=== PATIENT | female | born 1985 | race Caucasian/White ===

== ENCOUNTER 2019-04-08 18:41 | Emergency (ER) | payer OTHER, MEDICAID, SELFPAY ==
[2019-04-08 18:44] VITALS: BP 96/67; PULSE 87; RESP 16; TEMP 36.8; O2SAT 98
--- NOTE | 2019-04-08 18:48 | DI.RAD.S_ITS ---
PROCEDURE: XR SHOULDER RT MIN 2V INDICATIONS: injury to joint/ tingling TECHNIQUE: 3 views of the shoulder were acquired. COMPARISON: None. FINDINGS: Bones: No fractures or dislocations. No suspicious bony lesions. Visualized ribs appear intact. Soft tissues: No suspicious soft tissue calcifications. IMPRESSION: Intact right shoulder. Dictated by: Lindsay Romano M.D. on 04/08/2019 at 19:28 Approved by: Lindsay Romano M.D. on 04/08/2019 at 19:28
[2019-04-08 20:41] VITALS: BP 88/63; PULSE 65; RESP 17; O2SAT 99
[2019-04-08] MEDS: IBUPROFEN 400 MG TABLET 800 MG PO (20:49)
--- NOTE | 2019-04-08 20:51 | ED.UPPEXIN ---
HPI - Extremity Injury (Upper) General Chief Complaint: Extremity Injury, Upper Stated Complaint: right side collar bone injury Time Seen by Provider: 04/08/19 20:51 Source: patient Mode of arrival: Ambulatory Limitations: no limitations History of Present Illness HPI narrative: This is a 33-year-old female comes to the emergency department with complaint of right clavicle shoulder pain. Patient was getting into her vehicle and lifted the trunk lid. It does not stay elevated and fell back onto her right clavicle shoulder region. Patient states she had immediate pain as well as tingling and numbness sort of shooting down her arm toward her elbow and a little bit to her pinky finger. That has resolved. She denies any weakness. She denies any numbness. She still is some tenderness over that area and some redness. She states that she does not have any pain in her neck although initially the muscles were very tight and tight into her neck as well. Patient denies any other injuries. She does have a history of multiple sclerosis. She has had allergies to diclofenac and paroxetine but takes ibuprofen intermittently without issue. Area is feeling better at this time although still uncomfortable. Related Data Allergies Allergy/AdvReac Type Severity Reaction Status Date / Time diclofenac Allergy Intermediate CHEST PAIN Unverified 10/08/17 12:58 piroxicam Allergy Mild HIVES Unverified 10/08/17 12:58 sumatriptan Allergy Unknown Unverified 10/08/17 12:58 Review of Systems Review of Systems ROS Unobtainable: All systems reviewed & are unremarkable except as noted in HPI and below [facility] Medical History (Updated 04/08/19 @ 21:07 by Ayaka Rivas DO) Multiple sclerosis (Acute) Surgical History Status post appendectomy Status post dilation and curettage Social History Smoking Status: Never smoker Social History Smoking Status: Never smoker Exam Narrative Exam Narrative: GENERAL: Alert and oriented x three, thin, well-appearing female in mild distress. HEENT: Head normocephalic, atraumatic, EOMI, pupils reactive, face symmetric, moist mucous membranes NECK: Supple, full range of motion CARDIOVASCULAR: Regular rate and rhythm without murmurs, rubs or gallops. RESPIRATORY: Breath sounds equal bilaterally, no wheezes rales or rhonchi. EXTREMITIES: Normal range of motion, no clubbing or edema. Neurovascularly intact. patient has equal family medicine physician bilaterally, 5/5 upper extremity strength. Patient has sensation throughout both upper extremities. She does have an erythematous line thumb over the distal right clavicle but proximal to the AC joint. It is moderately tender in the area. No discrete bony tenderness or deformity is noted. She does not have a hematoma or ecchymosis noted. No swelling is appreciated. Patient has full range of her neck with nontender cervical spine NEUROLOGICAL: Cranial nerves II through XII grossly intact. Moving all extremities SKIN: Warm, dry, no petechiae, no rashes or lesions. Initial Vital Signs Initial Vital Signs: Vital Signs Temperature 98.2 F 04/08/19 18:44 Pulse Rate 87 04/08/19 18:44 Respiratory Rate 16 04/08/19 18:44 Blood Pressure 96/67 04/08/19 18:44 Pulse Oximetry 98 04/08/19 18:44 Course Orders Ordered: Discontinued Medications Ibuprofen (Advil) 800 mg PO NOW ONE Stop: 04/08/19 20:46 Last Admin: 04/08/19 20:49 Dose: 800 mg Documented by: ARRINGTO Vital Signs Vital signs: Vital Signs - 8 hr 04/08/19 18:44 04/08/19 20:41 Temperature 98.2 F Pulse Rate 87 65 Respiratory Rate 16 17 Blood Pressure 96/67 Blood Pressure [Left Arm] 88/63 L Pulse Oximetry 98 99 MDM - Extremity Injury (Upper) Imaging Data right shoulder: Radiologist's impression: [address] [address] XRay Report Signed Patient: Velia Ceballos LMR#: [id number] : 1985Acct:[id number] Age/Sex: 33 / FDate of Service: 04/08/19 Loc: ED Accession Number: [id number] Procedure: XR shoulder RT min 2V Ordering Provider: Ayaka Rivas D.O. PROCEDURE: XR SHOULDER RT MIN 2V INDICATIONS: injury to joint/ tingling TECHNIQUE: 3 views of the shoulder were acquired. COMPARISON: None. FINDINGS: Bones: No fractures or dislocations. No suspicious bony lesions. Visualized ribs appear intact. Soft tissues: No suspicious soft tissue calcifications. IMPRESSION: Intact right shoulder. Dictated by: Lindsay Romano M.D. on 04/08/2019 at 19:28 Approved by: Lindsay Romano M.D. on 04/08/2019 at 19:28 [facility] Narrative Medical decision making narrative: Patient states feeling little bit better with ice. Was given ibuprofen here in the department. She states she tolerates ibuprofen fine we discussed ibuprofen as needed as well as Tylenol. Treatment in signs and symptoms to watch for and reasons to return emergently. Patient is comfortable with the plan. She is accompanied by her boyfriend. Discharge Plan Departure Patient Disposition: Home Clinical Impression: Contusion of right clavicle Discharge Date/Time: 04/08/19 21:20 Activity Restrictions/Additional Instructions: Follow-up with primary care next 5-7 days if your symptoms have not completely resolved You may continue ibuprofen up to 800 mg every 8 hours and/or Tylenol up to a 1000 mg every 8 hours as needed for pain. You may use a sling as needed, make sure they UR moving her shoulder through full range of motion several times daily while wearing a sling to avoid frozen shoulder. Increase activity as tolerated. Elevated affected body part to decrease swelling. OK to use ice pack on the affected body part. Use for 15-20 minutes each time, for 5-6x per day. If you develop worsening pain, numbness, tingling, discoloration of the affected body part and either see your doctor for an urgent re-assessment, or return to the Emergency Department. Return to the Emergency Department for any new or worsening symptoms. Stand Alone Forms: Work Release Note
== END 2019-04-08 21:20 | disposition home or self-care (01) ==
PROVIDERS: Emergency Provider Emergency Medicine; Family Provider Obstetrics & Gynecology
DX: S40.011A Contusion of right shoulder, initial encounter (principal)
CPT/HCPCS: 73030; 99282; 99283

== ENCOUNTER 2021-03-05 19:22 | Emergency (ER) | payer OTHER, MEDICAID, SELFPAY ==
[2021-03-05 19:26] VITALS: BP 102/72; PULSE 82; RESP 16; TEMP 36.8; O2SAT 98
--- NOTE | 2021-03-05 19:35 | DI.CT.S_ITS ---
PROCEDURE: CT CERVICAL SPINE WO CON INDICATIONS: twisting injury TECHNIQUE: Noncontrast 3 mm thick sections acquired from the skull base to the T4 level. Sagittal and coronal reformats were then constructed. For radiation dose reduction, the following was used: automated exposure control, adjustment of mA and/or kV according to patient size. COMPARISON: None. FINDINGS: Image quality: Excellent. Bones: No acute fractures or dislocations. No acute compression fractures of the vertebral bodies. Craniocervical junction is intact. C1-C2 relationship is preserved. Visualized superior ribs are intact. Straightening of normal cervical lordosis which may be due to patient positioning and/or concurrent muscle spasms. Soft tissues: Prevertebral soft tissues are normal in thickness. No paravertebral hematomas. No apical pneumothoraces. IMPRESSION: CT cervical spine without acute fracture or dislocation. Mild straightening of normal cervical lordosis likely related to positioning and/or concurrent muscle spasms. Dictated by: Henry Lombardi M.D. on 03/05/2021 at 19:46 Approved by: Henry Lombardi M.D. on 03/05/2021 at 19:48
--- NOTE | 2021-03-05 21:43 | PC.NURSE ---
Patient was on a slide/trampoline that ended up with her landing on her head and flipping over causing a kind of whiplash incident. She endorsed a popping sensation and considerable pain afterwards.
--- NOTE | 2021-03-05 23:04 | ED.BACK ---
HPI - Back Pain/Injury General Chief Complaint: Back Pain/Injury Stated Complaint: neck injury at [facility] emergency room Time Seen by Provider: 03/05/21 23:00 Source: patient Mode of arrival: Ambulatory Limitations: no limitations History of Present Illness HPI Narrative: This is a 35-year-old female comes emergency department after having a side bending injury to her cervical spine. Patient was riding on a 2 with her child across is a rubbery floor down a slide when they fell often patient landed on her with her body sort of flipping up in the air and then coming back down. Patient states she had significant pain and discomfort in cervical spine that has been slowly moving down towards through her back as the day progresses. This happened about noon today. Patient denies any new numbness, tingling or weakness. She denies any loss of consciousness. No headache. No nausea or vomiting. No loss of bowel or bladder control. Patient is not anticoagulated. She does have a history of MS. She is on gabapentin daily but denies other daily medications. No tobacco, alcohol or illicit. She does note that she has some bulging discs in the past and this area seems a bit more uncomfortable at this time. Patient did take some ibuprofen at home earlier today which was somewhat helpful. Related Data Previous Rx's Medication Instructions Recorded diazepam 10 mg tablet (Valium) 10 mg PO TID PRN #14 tab 03/05/21 Allergies Allergy/AdvReac Type Severity Reaction Status Date / Time diclofenac Allergy Intermediate CHEST PAIN Unverified 10/08/17 12:58 piroxicam Allergy Mild HIVES Unverified 10/08/17 12:58 sumatriptan Allergy Unknown Unverified 10/08/17 12:58 Review of Systems Review of Systems ROS Unobtainable: All systems reviewed & are unremarkable except as noted in HPI and below Patient History Medical History Multiple sclerosis Surgical History Status post appendectomy Status post dilation and curettage Social History Smoking Status: Never smoker Smoking Status: Never smoker alcohol intake frequency: 0-2 drinks per day Substance Use Type: does not use Exam Narrative Exam Narrative: GEN: C-collar in department. Patient appears in mild distress. HEAD: No evidence of trauma, no raccoon/Mast sign. NECK: Nontender, painless range of motion, trachea midline Positive Nexus criteria, there is mild mid line tenderness, no distracting injury, altered mental status, neuro deficit, recent EtOH. EYES: PERRLA, EOMI ENT: External inspection normal, trachea is midline, no dental or oral injury, airway is normal and with normal occlusion, No bony tenderness RESP: Chest is nontender and has symmetric movement, no ecchymosis, breath sounds are normal no crackles, wheezes or rales CVS: Heart sounds are normal, no murmur noted, No JVD. ABG/GI: Nontender, soft, normal bowel sounds, no distention, no organomegaly NEURO: Oriented AOx3, neuro is grossly intact, sensation and motor is normal all 4 extremities moving, cranial nerves II through XII are intact, GCS is 15 PSYCH: Normal mood and affect SKIN: Intact, warm and dry, no crepitus and without decubitus BACK: No CVA tenderness, patient has mild vertebral tenderness over C6 vertebral tenderness, no step-off's, no crepitus. Patient does have quite a bit of muscle tightness particularly of the left paraspinal muscles. Patient does have full range of motion of her cervical spine. With no significant restriction in rotation. EXT: Atraumatic, hips are nontender, no pedal edema, normal color and temperature, normal range of motion of extremities with normal tendon exam, 2+ pulses in all four extremities Initial Vital Signs Initial Vital Signs: Vital Signs Temperature 98.3 F 03/05/21 19:26 Pulse Rate 82 03/05/21 19:26 Respiratory Rate 16 03/05/21 19:26 Blood Pressure 102/72 03/05/21 19:26 Pulse Oximetry 98 03/05/21 19:26 Scores Nexus Score for C-Spine Focal Neurologic deficit present: No Midline spinal tenderness present: Yes Altered level of conciousness present: No Intoxication present: No Distracting Injury Present: No Nexus Criteria for C-spine: 1 Course Orders Ordered: Discontinued Medications Hydrocodone Bitart/Acetaminophen (Hydrocodone/Acet 5/325 Prepack) 1 bottle MISC SEEINSTR ONE Stop: 03/05/21 23:16 Last Admin: 03/05/21 23:23 Dose: 1 bottle Documented by: SOBIA Diazepam (Diazepam 5 Mg Tablet) 10 mg PO NOW ONE Stop: 03/05/21 23:16 Last Admin: 03/05/21 23:22 Dose: 10 mg Documented by: SOBIA Diazepam (Diazepam 5 Mg Tablet) 5 mg PO NOW ONE Stop: 03/05/21 23:19 Last Admin: 03/05/21 23:23 Dose: Not Given Documented by: SOBIA Vital Signs Vital signs: Vital Signs - 8 hr 03/05/21 19:26 Temperature 98.3 F Pulse Rate 82 Respiratory Rate 16 Blood Pressure 102/72 Pulse Oximetry 98 MDM - Back Pain/Injury Imaging Data CT - cervical spine: Radiologist's Impression: [address] [address] [address] Scan Report Signed Patient: Velia Hannah MR#: [id number] : 1985 Acct:[id number] Age/Sex: 35 / F Date of Service: 03/05/21 Loc: ED Accession Number: [id number] ?? Procedure: CT cervical spine wo con Ordering Provider: Ayaka Rivas D.O. PROCEDURE:? CT CERVICAL SPINE WO CON ? INDICATIONS:? twisting injury ? TECHNIQUE:? Noncontrast 3 mm thick sections acquired from the skull base to the T4 level.? Sagittal and coronal reformats were then constructed.? For radiation dose reduction, the following was used:? automated exposure control, adjustment of mA and/or kV according to patient size.? ? COMPARISON:? None. ? FINDINGS:? Image quality:? Excellent.? ? Bones:? No acute fractures or dislocations.? No acute compression fractures of the vertebral bodies. Craniocervical junction is intact. C1-C2 relationship is preserved. Visualized superior ribs are intact.? Straightening of normal cervical lordosis which may be due to patient positioning and/or concurrent muscle spasms. ? Soft tissues:? Prevertebral soft tissues are normal in thickness.? No paravertebral hematomas.? No apical pneumothoraces.? ? ? IMPRESSION:? CT cervical spine without acute fracture or dislocation. Mild straightening of normal cervical lordosis likely related to positioning and/or concurrent muscle spasms. ? Dictated by: Henry Lombardi M.D. on 03/05/2021 at 19:46 ? ? Approved by: Henry Lombardi M.D. on 03/05/2021 at 19:48?? [facility] Narrative Medical decision making narrative: This is a 35-year-old with a side bending injury to her cervical spine. Patient has some midline discomfort on exam not severe. C-spine CT was obtained and is negative. Patient's physical exam is otherwise reassuring and my suspicion for ligamentous injury is low. Return precautions were discussed. Patient was given muscle relaxer and plans to use ibuprofen/Tylenol as needed for pain with a prepack of narcotic pain medication for very short-term control. Discharge Plan Departure Patient Disposition: Home Clinical Impression: Acute cervical sprain Instructions: DI for Whiplash Activity Restrictions/Additional Instructions: Follow up with your physician in the next week for recheck if you are not improving. Continue with ibuprofen up to 800 mg every 8 hours and/or Tylenol 1000 mg every 8 hours as needed for pain. You may take Valium 1 tablet every 8 hours as needed for muscle spasm. If necessary may take Empire 1 tablet every 6 hours as needed pain. This medication does have Tylenol in it. Do not take more than 3000 mg of Tylenol in 24 hours. This medication can make you sleepy do not drive, perform hazardous activities or make any major decisions while taking it. This medication will make you constipated please take a stool softener once to twice daily until stools are soft and regular. Pres[facility]. Please return for severe headaches, rapidly worsening neck pain, new numbness, tingling or weakness, loss of bowel or bladder control, difficulty moving or using her extremities, dropping objects, new chest pain, shortness of breath, persistent vomiting or other new or concerning symptoms. Prescriptions: New diazepam [Valium] 10 mg tablet 10 mg PO TID PRN (Reason: muscle spasm) Qty: 14 RF: 0
[2021-03-05] MEDS: diazePAM 5 MG TABLET 10 MG PO (23:22)
[2021-03-05] MEDS: HYDROCODONE/ACET 5/325 PREPACK 1 BOTTLE MISC (23:23)
== END 2021-03-05 23:45 | disposition home or self-care (01) ==
PROVIDERS: Emergency Provider Emergency Medicine; Family Provider Obstetrics & Gynecology
DX: S13.9XXA Sprain of joints and ligaments of unspecified parts of neck, initial encounter (principal); W19.XXXA Unspecified fall, initial encounter
CPT/HCPCS: 72125; 99284

== ENCOUNTER → 2021-09-25 13:06 | Outpatient (CLI) | payer OTHER, MEDICAID, SELFPAY | PROVIDERS: Family Provider Obstetrics & Gynecology; Visit Provider Nurse Practitioner Family | DX: J02.9 Acute pharyngitis, unspecified (principal) | CPT/HCPCS: 87880 ==

== ENCOUNTER 2022-04-27 18:06 | Observation (INO) | payer OTHER, MEDICAID, SELFPAY ==
[2022-04-27] VITALS (17 sets, daily range): BP systolic 80–129; BP diastolic 52–89; PULSE 69–92; RESP 12–29; TEMP 36.3–36.5; O2SAT 97–99; BMI 21.1
--- NOTE | 2022-04-27 18:30 | DI.RAD.S_ITS ---
PROCEDURE: XR CHEST 1V INDICATIONS: chest pain TECHNIQUE: One view of the chest was acquired. COMPARISON: [facility], , CHEST 2 VIEW, 11/18/2014, 17:31. FINDINGS: Surgical changes and devices: None. Lungs and pleura: Lungs are clear. No pleural effusions or pneumothorax. Mediastinum: Mediastinal contours appear normal. Heart size is normal. Bones and chest wall: No suspicious bony lesions. Overlying soft tissues appear unremarkable. IMPRESSION: No acute cardiopulmonary abnormality. Dictated by: Arturo Murray M.D. on 04/27/2022 at 19:12 Approved by: Arturo Murray M.D. on 04/27/2022 at 19:13
[2022-04-27 19:10] LABS: Alanine Aminotransferase 20 IU/L (<35); Albumin 4.5 g/dL (3.5-5.0); Albumin Globulin Ratio 1.3 (1.0-2.8); Alkaline Phosphatase 68 U/L (38-126); Aspartate Aminotransferase 23 IU/L (14-36); BUN Creatinine Ratio 20.4 (6-22); Bilirubin Total 0.7 mg/dL (0.2-1.3); Blood Urea Nitrogen 10 mg/dL (7-17); Calcium 9.1 mg/dL (8.4-10.2); Carbon Dioxide 27 mmol/L (22-32); Chloride 102 mmol/L (98-107); Creatine Kinase 36 U/L (30-135); Estimated Glomerular Filt Rate > 60 mL/min (>60); Globulin 3.4 g/dL (1.7-4.1); Glucose 87 mg/dL (70-100); HEMOLYSIS < 15 (0-50); Lipase 106 U/L (23-300); Potassium 3.3 mmol/L (3.4-5.1); Sodium 139 mmol/L (137-145); Total Protein 7.9 g/dL (6.3-8.2)
[2022-04-27 19:21] LABS: Troponin I < 0.012 ng/mL (0.01-0.034)
[2022-04-27 19:41] LABS: Add Manual Diff / Slide Review NO; Basophils Absolute Auto 0 /uL (0-100); Basophils Percent Auto 0.5 % (0-2); Eosinophils Absolute Auto 300 /uL (0-450); Eosinophils Percent Auto 3.5 % (2-4); Hematocrit 37.9 % (36-46); Lymphocytes Absolute Auto 2200 /uL (1100-4500); Lymphocytes Percent Auto 29.1 % (25-40); Mean Corpuscular HGB Conc 34.4 % (30-36); Mean Corpuscular Hemoglobin 29.9 PG (26-34); Mean Corpuscular Volume 86.9 fL (80-100); Monocytes Absolute Auto 500 /uL (0-900); Monocytes Percent Auto 6.6 % (3-14); Neutrophils Absolute Auto 4600 /uL (1500-7000); Neutrophils Percent Auto 60.3 % (50-75); Platelet Count 217 X10^3/uL (150-400); Red Blood Cell Count 4.37 X10^6/uL (4.0-5.2); Red Cell Distribution Width 13.5 % (11.6-14.8); White Blood Cell Count 7.7 X10^3/uL (4.5-11.0)
--- NOTE | 2022-04-27 20:11 | DI.CT.S_ITS ---
PROCEDURE: CT ANGIO HEAD AND NECK INDICATIONS: left arm weakness, tingling, ms hx, falling asleep a lot TECHNIQUE: Pre-contrast 4.5 mm thick sections acquired from the foramen magnum to the vertex. After the administration of intravenous contrast, 1 mm thick sections acquired from the aortic arch through the [place]. Post-contrast 4.5 mm thick sections then re-acquired from the foramen magnum to the vertex. 3-dimensional [id number] (MIP) and/or volume rendering reformats were acquired of the central intracranial vasculature and neck separately. For radiation dose reduction, the following was used: automated exposure control, adjustment of mA and/or kV according to patient size. COMPARISON: None. FINDINGS: Image quality: Excellent. BRAIN: CSF spaces: Ventricles are normal in size and shape. Basal cisterns are patent. No extra-axial fluid collections. Brain: No midline shift. No intracranial bleeds or masses. [place]-white matter interface appears intact. Skull and face: Calvarium and facial bones appear intact, without suspicious lesions. Orbits appear normal. Sinuses: Sinuses and mastoids are clear. HEAD CT ANGIOGRAPHY: Anterior circulation: Intracranial internal carotid arteries are normal in size and flow. The flow within the paired anterior cerebral arteries is normal and symmetric. The flow within the middle cerebral arteries is normal and symmetric. The anterior communicating artery is seen. No aneurysms are seen. Posterior circulation: Visualized portions of the vertebral arteries demonstrate normal caliber, and join to form a normal appearing basilar artery. Flow within the posterior cerebral arteries is normal and symmetric. No aneurysms are seen. NECK CT ANGIOGRAPHY: Carotid system: The great vessels demonstrate a conventional anatomy as they arise from the aortic arch. The origins of the common carotid arteries appear patent. The common carotid arteries demonstrate normal caliber and courses. The bifurcation regions are both widely patent. The internal carotid arteries demonstrate normal calibers and courses. Posterior circulation: The origins of the vertebral arteries both appear widely patent. The more superior extracranial portions of both vertebral arteries also demonstrate normal courses and calibers. They join to form a normal appearing basilar artery. Soft tissues: Visualized neck soft tissues demonstrate no suspicious abnormalities. Bones: No suspicious bony lesions. Visualized cervical spine appears normally aligned. IMPRESSION: Normal examination. Source of current symptoms is not found. Any quantitative measurements of stenosis were performed using NASCET criteria. Dictated by: Merritt Maharaj M.D. on 04/27/2022 at 21:37 Approved by: Merritt Maharaj M.D. on 04/27/2022 at 21:39
--- NOTE | 2022-04-27 20:34 | ED_ITS ---
HPI - Arrhythmia/Palpitations General Chief Complaint: Arrhythmia/Palpitations Stated Complaint: Having a Diabetic Episode Time Seen by Provider: 04/27/22 20:11 Source: patient Mode of arrival: Ambulatory Limitations: no limitations History of Present Illness HPI narrative: This is a 36-year-old female who presents with complaint of trouble staying awake, she states that she is had clumps of hair falling out and has felt shaky with some blurred vision as well as occasionally fluttering in her chest and numbness that radiates down her left arm. Patient states she has not appreciated dropping anything. She occasionally feels short of breath. She states symptoms specifically the vision change and numbness tingling in her arm started today, she thought she was having blood blood sugar but none in the normal thing she would do would make this better. She is been having some issues with her hair falling out and feeling generally shaky and falling asleep more frequently over the past month but acutely over the last 2 or 3 days it has worsened. Patient denies any fevers or chills, no cold cough or congestion. No chest pain or pressure. Occasional shortness of breath when she feels anxious as 1 of her children is in addiction treatment and 1 [address]. No nausea or vomiting, no diarrhea constipation, no urinary symptoms. No swelling. Patient occasionally has pain in her back that radiates down her arm. She has not appreciated dropping things. She does have a history of MS she states she had a flare in 2013 was mostly visual changes and optic nerve issues. She was diagnosed by Dr. Contreras but has not been following regularly. She is had a prior appendectomy. She states no daily medications. She0 has received IV steroids in the past. She is allergic to sumatriptan and diclofenac. No tobacco, rare alcohol 1 or 2 times yearly, no illicit. She is no longer establish with primary but was seeing the [facility]. She also requests to be evaluated with drug screen as her work place thought she was high. Related Data Home Medications Medication Instructions Recorded Confirmed gabapentin 300 mg capsule 300 mg PO BID 09/25/21 04/28/22 Previous Rx's Medication Instructions Recorded diazepam 10 mg tablet (Valium) 10 mg PO TID PRN muscle spasm #14 03/05/21 tabs Allergies Allergy/AdvReac Type Severity Reaction Status Date / Time diclofenac Allergy Intermediate CHEST PAIN Unverified 03/24/22 10:01 piroxicam Allergy Mild HIVES Unverified 03/24/22 10:01 sumatriptan Allergy Unknown Unverified 03/24/22 10:01 Review of Systems Review of Systems ROS Unobtainable: All systems reviewed & are unremarkable except as noted in HPI and below Patient History Medical History Multiple sclerosis Surgical History Status post appendectomy Status post dilation and curettage Family History (Updated 04/28/22 @ 02:05 by KACI Johnson) Mother Epilepsy Diabetes mellitus Congestive heart failure Father Cancer Social History household members: spouse and children Smoking Status: Never smoker Smoking Status: Never smoker alcohol intake frequency: holidays/special occasions only Substance Use Type: does not use Exam Narrative Exam Narrative: GEN: well nourished, well appearing female, alert and oriented x [default value], patient appears to be in mild distress. HEENT: Atraumatic, pupils are equal round reactive to light, extraocular movements are intact, nares are clear, TMs are clear with no fluid, there is no conjunctival pallor. Throat is clear without any exudates, erythema, tonsillar enlargement or uvular deviation, no facial droop HEART: Regular rate and rhythm without murmur, clicks, rubs. Pulses are equal in upper and lower extremities LUNGS:Lungs clear to auscultation, no wheezes, rales, crackles, chest moves symmetrically ABD:bowel sounds normal, soft, non-tender, no guarding, rebound, rigidity, no masses noted, no hepatosplenomegaly :No CVA tenderness MSCL: Non-tender, no muscle atrophy, muscles strength 5/5 upper and lower extremities but patient has drift on the left upper extremity on NIH. Full range of motion NEURO:CN 2-12 intact, sensation normal, reflexes 2/4 upper and lower extremities. finger nose finger test normal, heel pathak test normal, patient has mild tremors bilateral lower extremities. SKIN: No rash, erythema or other skin changes Initial Vital Signs Initial Vital Signs: Vital Signs Temperature 97.7 F 10/29/22 18:12 Pulse Rate 92 H 04/27/22 18:12 Respiratory Rate 20 04/27/22 18:12 Blood Pressure 129/89 04/27/22 18:12 Pulse Oximetry 99 04/27/22 18:12 Oxygen Delivery Method 04/27/22 18:12 Scores NIH Stroke Scale Level of Conciousness: Alert, keenly responsive Ask month/age: Answers both questions correctly. Open/close eyes, close hand: Performs both tasks correctly Best gaze horizontal: Normal Visual morocho: No visual loss Facial palsy: Normal symetrical movement Left arm drift: Drifts down, not to bed Right arm drift: No drift for full 10 sec Left leg drift: Drifts down, not to bed Right leg drift: No drift for full 5 sec Limb ataxia: Absent Sensory on face/arms/legs: Mild to moderate sensory loss, can tell touch Best language: No aphasia, normal Dysarthria: Normal Extinction or inattention: No abnormality Total NIH Stroke scale score: 3 Course Orders Ordered: ED Orders 04/27/22 23:00 Consult to Discharge Planning Routine Consult to Occupational Therapy Evaluate & Treat Consult to Physical Therapy Evaluate & Treat Consult to Speech Therapy Evaluate & Treat MR stroke Stat Education, smoking cessation ONGOING 04/28/22 01:10 Troponin I Q6H 04/28/22 05:00 Basic Metabolic Panel Routine 04/28/22 07:00 Troponin I Q6H Aspirin (Aspirin Ec 81 Mg Tablet) 81 mg PO DAILY [facility] Atorvastatin Calcium (Atorvastatin 20 Mg Tablet) 20 mg PO BEDTIME [facility] Last Admin: 04/28/22 01:26 Dose: 20 mg Documented By: DGF Clopidogrel Bisulfate (Clopidogrel 75 Mg Tablet) 75 mg PO DAILY [facility] Enoxaparin Sodium (Enoxaparin 40 Mg/0.4 Ml Syringe) 40 mg SUBCUT DAILY [facility] Naloxone HCl (Naloxone 0.4 Mg/Ml Vial) 0.2 mg IV Q2MIN PRN PRN Reason: Opiate Reversal Discontinued Medications Sodium Chloride (Normal Saline 0.9%) 1,000 mls @ 1,000 mls/hr IV BOLUS ONE Stop: 04/27/22 21:36 Last Infusion: 04/27/22 23:03 Dose: 0 mls/hr Documented By: Admin: 04/27/22 20:41 Dose: 1,000 mls/hr Documented By: SB Potassium Chloride (Potassium Chloride 10 Meq Tab) 10 meq PO NOW ONE Stop: 04/28/22 02:03 Consultations Consultation #1: Dr. Huff, recommends MR brain and C-spine at the same time not just sprain and fatigue labs could possibly be pseudo exacerbation but would do appropriate workup stroke as well. Time: 22:42 Consultation #2: [employer] REPAIR TECHNICIAN Joseph, Vital Signs Vital signs: Vital Signs - 8 hr 04/27/22 22:00 04/27/22 22:09 04/27/22 22:09 Pulse Rate 79 91 H Respiratory Rate 13 20 Blood Pressure 80/52 L Pulse Oximetry 97 97 04/27/22 22:10 04/27/22 22:10 04/27/22 22:30 Pulse Rate 92 H Respiratory Rate 14 Blood Pressure 86/54 L 93/55 L Pulse Oximetry 97 04/27/22 22:30 04/27/22 23:00 04/27/22 23:00 Pulse Rate 80 83 Respiratory Rate 12 Blood Pressure 94/57 L Pulse Oximetry 98 99 MDM - Arrhythmia/Palpitations Lab Data Result diagrams: 04/27/22 18:45 04/27/22 18:45 Labs: Lab Results 04/27/22 04/27/22 04/27/22 Range/Units 18:45 18:45 18:45 WBC 7.7 (4.5-11.0) X10^3/uL RBC 4.37 (4.0-5.2) X10^6/uL Hgb 13.0 (12.0-16.0) g/dL Hct 37.9 (36-46) % MCV 86.9 (80-100) fL MCH 29.9 (26-34) PG MCHC 34.4 (30-36) % RDW 13.5 (11.6-14.8) % Plt Count 217 (150-400) X10^3/uL Neut % (Auto) 60.3 (50-75) % Lymph % (Auto) 29.1 (25-40) % [place] % (Auto) 6.6 (3-14) % Eos % (Auto) 3.5 (2-4) % Baso % (Auto) 0.5 (0-2) % Neut # (Auto) 4600 (5475-1013) /uL Lymph # (Auto) 2200 (4472-6198) /uL [place] # (Auto) 500 (0-900) /uL Eos # (Auto) 300 (0-450) /uL Baso # (Auto) 0 (0-100) /uL PT (10.1-12.7) SECONDS INR (0.9-1.3) Sodium 139 (137-145) mmol/L Potassium 3.3 L (3.4-5.1) mmol/L Chloride 102 (98-107) mmol/L Carbon Dioxide 27 (22-32) mmol/L BUN 10 (7-17) mg/dL Creatinine 0.49 L (0.52-1.04) mg/dL Estimated GFR > 60 (>60) mL/min BUN/Creatinine Ratio 20.4 (6-22) Glucose 87 (70-100) mg/dL Hemoglobin A1c (4.0-6.0) % Calcium 9.1 (8.4-10.2) mg/dL Magnesium 2.0 (1.6-2.3) mg/dL Total Bilirubin 0.7 (0.2-1.3) mg/dL AST 23 (14-36) IU/L ALT 20 (<35) IU/L Alkaline Phosphatase 68 (38-126) U/L Total Creatine Kinase 36 (30-135) U/L CK-MB (CK-2) TNP CK-MB (CK-2) Rel Index TNP Troponin I < 0.012 (0.01-0.034) ng/mL Total Protein 7.9 (6.3-8.2) g/dL Albumin 4.5 (3.5-5.0) g/dL Globulin 3.4 (1.7-4.1) g/dL Albumin/Globulin Ratio 1.3 (1.0-2.8) Triglycerides (35-150) mg/dL Cholesterol (140-199) mg/dL LDL Cholesterol, Calc (<100) mg/dL HDL Cholesterol (40-60) mg/dL Lipase 106 (23-300) U/L TSH (0.47-4.68) uIU/mL Cortisol PM Sample (1.7-14.1) ug/dL U Opiates 300ng/mL cut Negative (Negative) Ur Oxycodone Screen Negative (Negative) Urine Methadone Screen Negative (Negative) Ur Barbiturates Screen Negative (Negative) U Tricyclic Antidepress Negative (Negative) Ur Phencyclidine Scrn Negative (Negative) Ur Amphetamines Screen Negative (Negative) U Methamphetamines Scrn Negative (Negative) Ur MDMA Scrn (Ecstasy) Negative (Negative) U Benzodiazepines Scrn Negative (Negative) Urine Cocaine Screen Negative (Negative) U Marijuana (THC) Screen Negative (Negative) 04/27/22 04/27/22 04/27/22 Range/Units 18:45 18:45 18:45 WBC (4.5-11.0) X10^3/uL RBC (4.0-5.2) X10^6/uL Hgb (12.0-16.0) g/dL Hct (36-46) % MCV (80-100) fL MCH (26-34) PG MCHC (30-36) % RDW (11.6-14.8) % Plt Count (150-400) X10^3/uL Neut % (Auto) (50-75) % Lymph % (Auto) (25-40) % [place] % (Auto) (3-14) % Eos % (Auto) (2-4) % Baso % (Auto) (0-2) % Neut # (Auto) (6635-4900) /uL Lymph # (Auto) (0869-3781) /uL [place] # (Auto) (0-900) /uL Eos # (Auto) (0-450) /uL Baso # (Auto) (0-100) /uL PT 12.1 (10.1-12.7) SECONDS INR 1.1 (0.9-1.3) Sodium (137-145) mmol/L Potassium (3.4-5.1) mmol/L Chloride (98-107) mmol/L Carbon Dioxide (22-32) mmol/L BUN (7-17) mg/dL Creatinine (0.52-1.04) mg/dL Estimated GFR (>60) mL/min BUN/Creatinine Ratio (6-22) Glucose (70-100) mg/dL Hemoglobin A1c 5.1 (4.0-6.0) % Calcium (8.4-10.2) mg/dL Magnesium (1.6-2.3) mg/dL Total Bilirubin (0.2-1.3) mg/dL AST (14-36) IU/L ALT (<35) IU/L Alkaline Phosphatase (38-126) U/L Total Creatine Kinase (30-135) U/L CK-MB (CK-2) CK-MB (CK-2) Rel Index Troponin I (0.01-0.034) ng/mL Total Protein (6.3-8.2) g/dL Albumin (3.5-5.0) g/dL Globulin (1.7-4.1) g/dL Albumin/Globulin Ratio (1.0-2.8) Triglycerides 60 (35-150) mg/dL Cholesterol 177 (140-199) mg/dL LDL Cholesterol, Calc 100 (<100) mg/dL HDL Cholesterol 65 H (40-60) mg/dL Lipase (23-300) U/L TSH (0.47-4.68) uIU/mL Cortisol PM Sample (1.7-14.1) ug/dL U Opiates 300ng/mL cut (Negative) Ur Oxycodone Screen (Negative) Urine Methadone Screen (Negative) Ur Barbiturates Screen (Negative) U Tricyclic Antidepress (Negative) Ur Phencyclidine Scrn (Negative) Ur Amphetamines Screen (Negative) U Methamphetamines Scrn (Negative) Ur MDMA Scrn (Ecstasy) (Negative) U Benzodiazepines Scrn (Negative) Urine Cocaine Screen (Negative) U Marijuana (THC) Screen (Negative) 04/27/22 04/27/22 Range/Units 18:45 18:45 WBC (4.5-11.0) X10^3/uL RBC (4.0-5.2) X10^6/uL Hgb (12.0-16.0) g/dL Hct (36-46) % MCV (80-100) fL MCH (26-34) PG MCHC (30-36) % RDW (11.6-14.8) % Plt Count (150-400) X10^3/uL Neut % (Auto) (50-75) % Lymph % (Auto) (25-40) % [place] % (Auto) (3-14) % Eos % (Auto) (2-4) % Baso % (Auto) (0-2) % Neut # (Auto) (8959-6917) /uL Lymph # (Auto) (5343-5334) /uL [place] # (Auto) (0-900) /uL Eos # (Auto) (0-450) /uL Baso # (Auto) (0-100) /uL PT (10.1-12.7) SECONDS INR (0.9-1.3) Sodium (137-145) mmol/L Potassium (3.4-5.1) mmol/L Chloride (98-107) mmol/L Carbon Dioxide (22-32) mmol/L BUN (7-17) mg/dL Creatinine (0.52-1.04) mg/dL Estimated GFR (>60) mL/min BUN/Creatinine Ratio (6-22) Glucose (70-100) mg/dL Hemoglobin A1c (4.0-6.0) % Calcium (8.4-10.2) mg/dL Magnesium (1.6-2.3) mg/dL Total Bilirubin (0.2-1.3) mg/dL AST (14-36) IU/L ALT (<35) IU/L Alkaline Phosphatase (38-126) U/L Total Creatine Kinase (30-135) U/L CK-MB (CK-2) CK-MB (CK-2) Rel Index Troponin I (0.01-0.034) ng/mL Total Protein (6.3-8.2) g/dL Albumin (3.5-5.0) g/dL Globulin (1.7-4.1) g/dL Albumin/Globulin Ratio (1.0-2.8) Triglycerides (35-150) mg/dL Cholesterol (140-199) mg/dL LDL Cholesterol, Calc (<100) mg/dL HDL Cholesterol (40-60) mg/dL Lipase (23-300) U/L TSH 2.95 (0.47-4.68) uIU/mL Cortisol PM Sample 2.87 (1.7-14.1) ug/dL U Opiates 300ng/mL cut (Negative) Ur Oxycodone Screen (Negative) Urine Methadone Screen (Negative) Ur Barbiturates Screen (Negative) U Tricyclic Antidepress (Negative) Ur Phencyclidine Scrn (Negative) Ur Amphetamines Screen (Negative) U Methamphetamines Scrn (Negative) Ur MDMA Scrn (Ecstasy) (Negative) U Benzodiazepines Scrn (Negative) Urine Cocaine Screen (Negative) U Marijuana (THC) Screen (Negative) Point of Care Testing Test Results Negative Glucose POC 90 Urine Dip Bedside Urine Glucose Negative Bedside Urine Bilirubin - Negative Bedside Urine Ketone - Negative Urine Specific [place] 1.010 Bedside Urine Occult Blood - Negative Bedside Urine pH 7.5 Bedside Urine Protein - Negative Bedside Urine Urobilinogen - Negative Bedside Urine Nitrite - Negative Bedside Urine Leukocytes - Negative Esterase Imaging Data CTA - brain/neck: Radiologist's Impresson: Close Head/Neck CTA (Signed) Merritt Maharaj - 04/27/22 Chest X-Ray (Signed) Arturo Murray - 04/27/[address] (Signed) Maria CHenry - 03/05/21 Shoulder X-Ray (Signed) Lindsay Romano - 04/08/19 [place] [address] CT Scan Report Signed Patient: Velia Hannah MR#: [id number] : 1985 Acct:[id number] Age/Sex: 36 / F Date of Service: 04/27/22 Loc: ED Accession Number: [id number] ?? Procedure: CT angio head and neck Ordering Provider: Ayaka Rivas D.O. PROCEDURE:? CT ANGIO HEAD AND NECK ? INDICATIONS:? left arm weakness, tingling, ms hx, falling asleep a lot ? TECHNIQUE:? Pre-contrast 4.5 mm thick sections acquired from the foramen magnum to the vertex.? After the administration of intravenous contrast, 1 mm thick sections acquired from the aortic arch through the [place] of [place].? Post-contrast 4.5 mm thick sections then re- acquired from the foramen magnum to the vertex.? 3-dimensional flmaxng-qbscyfkbw-qovijumgsd (MIP) and/or volume rendering reformats were acquired of the central intracranial vasculature and neck separately. For radiation dose reduction, the following was used:? automated exposure control, adjustment of mA and/or kV according to patient size.? ? COMPARISON:? None. ? FINDINGS:? Image quality:? Excellent.? ? BRAIN:? CSF spaces:? Ventricles are normal in size and shape.? Basal cisterns are patent.? No extra-axial fluid collections.? ? Brain:? No midline shift.? No intracranial bleeds or masses.? [place]-white matter interface appears intact.? ? Skull and face:? Calvarium and facial bones appear intact, without suspicious lesions.? Orbits appear normal.? ? Sinuses:? Sinuses and mastoids are clear.? ? HEAD CT ANGIOGRAPHY:? Anterior circulation:? Intracranial internal carotid arteries are normal in size and flow.? The flow within the paired anterior cerebral arteries is normal and symme tric.? The flow within the middle cerebral arteries is normal and symmetric.? The anterior communicating artery is seen.? No aneurysms are seen.? ? Posterior circulation:? Visualized portions of the vertebral arteries demonstrate normal caliber, and join to form a normal appearing basilar artery.? Flow within the posterior cerebral arteries is normal and symmetric.? No aneurysms are seen.? ? NECK CT ANGIOGRAPHY:? Carotid system:? The great vessels demonstrate a conventional anatomy as they arise from the aortic arch.? The origins of the common carotid arteries appear patent.? The common carotid arteries demonstrate normal caliber and courses.? The bifurcation regions are both widely patent.? The internal carotid arteries demonstrate normal calibers and courses.? ? Posterior circulation:? The origins of the vertebral arteries both appear widely patent.? The more superior extracranial portions of both vertebral arteries also demonstrate normal courses and calibers.? They join to form a normal appearing basilar artery.? ? Soft tissues:? Visualized neck soft tissues demonstrate no suspicious abnormalities.? ? Bones:? No suspicious bony lesions.? Visualized cervical spine appears normally aligned.? IMPRESSION:? Normal examination.? Source of current symptoms is not found. ? Any quantitative measurements of stenosis were performed using NASCET criteria.? ? ? Dictated by: Merritt Maharaj M.D. on 04/27/2022 at 21:37 ? ? Approved by: Merritt Maharaj M.D. on 04/27/2022 at 21:39?? ECG Data Attestation: I personally reviewed and interpreted this ECG as follows: Interpretation: Sinus rhythm rate of 78 [place] 130 QRS is 74 and QTC of 424, no acute ST changes noted MDM Narrative Medical decision making narrative: This is a 36-year-old female who presents with complaint of some blurred vision left arm paresthesia and weakness as well as other concerns. Examination patient does have some discernible drift on the left and sensory changes of left she can arm, she is a history of MS and does not have other obvious risk factors for stroke, patient is far outside window for tPA symptom onset is approximately 11:00 a.m. although symptoms somewhat have been present even before. Head CT angio and non con do not show clear thrombosis or clot. Discussed with patient's neurology team through [facility] they recommend keeping patient for observation, MR brain and C-spine appropriate workup stroke as well as MS flare or pseudo flare. Discussed with patient she is agreeable to this and spoke with hospitalist who accepts. UDS was obtained patient's request. Discharge Plan Departure Patient Disposition: Admitted As Inpatient Clinical Impression: Arm paresthesia, left, Weakness Admit Date/Time: 04/27/22 23:03 Admit Provider: Jeannie Ruiz
[2022-04-27] MEDS: SODIUM CHLORIDE 0.9% 1,000 ML 1000 ML IV (20:41)
--- NOTE | 2022-04-27 20:58 | PC.NURSE ---
Pt reports 2 days of sleepiness where at times she falls asleep at work, heart palpitations, feeling weak, nausea, weird sensations in my left upper arm, shoulder, with numbness that radiates into left elbow and pinky, blurred vision and some balance problems. Pt also reports losing a lot of hair in the past week. Pt also states she is SOB all the time. RR is currently 18, with non-labored breathing and oxygen saturation WNL. Pt has hx of MS. Pt also states she is really worried about my kid who is on the streets. Provider made aware of this RN's assessment.
[2022-04-27 21:19] LABS: UR Morphine/Opiate cutoff 300 Negative (Negative); Ur Creatinine Normal (Normal); Ur Specific Gravity Normal (Normal); Urine Amphetamines Negative (Negative); Urine Barbiturates Negative (Negative); Urine Benzodiazepines Negative (Negative); Urine Cocaine Negative (Negative); Urine MDMA Negative (Negative); Urine Methadone Negative (Negative); Urine Methamphetamines Negative (Negative); Urine Oxycodone Negative (Negative); Urine Phencyclidine Negative (Negative); Urine Tetrahydrocannabinol Negative (Negative); Urine Tricyclic Antidepressant Negative (Negative); Urine pH Normal (Normal)
--- NOTE | 2022-04-27 23:07 | DI.MRI.S_ITS ---
PROCEDURE: MR HEAD/BRAIN WO/W CON INDICATIONS: MS, arm Numbness, visual changes TECHNIQUE: Noncontrast axial T1 spin echo, axial T2 fast spin echo, sagittal and axial FLAIR, coronal T2 fast spin echo, axial gradient echo, axial diffusion and ADC through the brain. After the administration of contrast, axial and coronal and sagittal 3D VIBE or T1 spin echo with fat saturation through the brain. COMPARISON: [facility], CT, CT ANGIO HEAD AND NECK, 04/27/2022, 20:55. [facility], MR, MR BRAIN WITH/WITHOUT CONTRAST, 05/20/2017, 19:13. FINDINGS: Image quality: Excellent. CSF Spaces: Basal cisterns are patent. No extra-axial fluid collections. Ventricles are normal in size and shape. Brain: No midline shift. No intracranial bleeds or masses. No abnormal intracranial enhancement. The brainstem appears normal. Diffusion-weighted images demonstrate no acute ischemic insults. A few nonspecific T2 hyperintense foci in the deep white matter of the right parietal lobe, unchanged compared to 2017. No chronic ischemic insults. Normal intravascular flow voids are present. Skull and face: Calvarial marrow is normal in signal. Orbits appear normal. Sinuses: Sinuses and mastoids appear clear. IMPRESSION: No acute infarct. No acute intracranial hemorrhage. No mass identified. No suspicious enhancement. Dictated by: Berlin Renee M.D. on 04/28/2022 at 9:07 Approved by: Berlin Renee M.D. on 04/28/2022 at 9:18
--- NOTE | 2022-04-27 23:15 | DI.MRI.S_ITS ---
PROCEDURE: MR CERVICAL SPINE WO/W CON INDICATIONS: MS, arm Numbness, visual changes TECHNIQUE: Noncontrast sagittal T1 spin echo and T2 fast spin echo, sagittal STIR, sagittal PD fast spin echo, foraminal oblique sagittal T2 fast spin echo, axial gradient echo or T2 fast spin echo through the cervical spine. After the administration of contrast, sagittal and axial T1 spin echo with fat saturation through the cervical spine. COMPARISON: [facility], MR, MR BRAIN WITH/WITHOUT CONTRAST, 05/20/2017, 19:13. [facility], MR, MR HEAD/BRAIN WO/W CON, 04/28/2022, 8:17. [facility], CT, CT ANGIO HEAD AND NECK, 04/27/2022, 20:55. [facility], MR, MR CERVICAL SPINE WITH/WITHOUT CONTRAST, 05/20/2017, 19:13. FINDINGS: Image quality: Excellent. Alignment and curvature: There is normal bony alignment. Marrow: Marrow demonstrates normal overall signal. Spinal cord: Visualized spinal cord is normal in size, without white matter lesions. No suspicious intramedullary enhancement. No cerebellar tonsillar herniation. Soft tissues: No paravertebral masses or suspicious enhancement. There is a right inframandibular cystic structure measuring 4 cm, (8/16). No enhancement is appreciated. The abnormality demonstrates mild T2 signal and intrinsic T1 signal. This is also seen on prior CT in retrospect. This is mildly increased in size compared to 03/05/2021. C2-C3: Normal appearance. C3-C4: Normal appearance. C4-C5: Normal appearance. C5-C6: Normal appearance. C6-C7: Normal appearance. C7-T1: Normal appearance. IMPRESSION: No cord signal abnormality. No suspicious enhancement. Right submandibular cyst or submandibular gland cyst measuring 4 cm is suspected. This is increased in size compared to February 2021. This may contain proteinaceous debris. Ultrasound may be helpful for further characterization. Dictated by: Berlin Renee M.D. on 04/28/2022 at 9:19 Approved by: Berlin Renee M.D. on 04/28/2022 at 9:36
--- NOTE | 2022-04-27 23:24 | P.HP_ITS ---
History of Present Illness History of Present Illness Date Patient Seen: 04/27/22 Time Patient Seen: 23:24 Chief complaint: Having a Diabetic Episode Narrative: Velia Hannah is a 36 yr old female with a past medical history MS diagnosis in 2013 (Lesion to Optic Nerve) with peripheral neuropathy and hx gestational diabetes who presented to the ED this evening complaining of a multitude of symptoms. She has been feeling extremely fatigued, lethargic, confused, blurry vision to the right eye (today,new), chronic left jaw line numbness, mild SOB over the past week, trouble staying awake, increasing clumps of hair falling out, shaky, occasionally fluttering in her chest and numbness that radiates down her left arm.? Patient states she has not appreciated dropping anything.? She states symptoms specifically the vision change and numbness tingling in her arm started today, but she generally overall is feeling very poorly. 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 Patient's last eye exam was September of 2021 in which she was advised by car usher to get a brain for unknown reasons. Patient has multiple sclerosis diagnosis asymptomatic by visual changes in the left eye, impaired peripheral vision, and inflammation and pain along the left optic nerve with occasional numbness along the left jawline. She has not experienced vision changes in the right prior. NIH:2 in ED due to visual changes. Patient had been prescribed gabapentin for the neuropathy, and Solu- Medrol or some form of steroids to treat inflammation or flares. The patient does not like the way the steroids or the gabapentin makes her feel and so has not been taking any of those medications for some time. She also had moved and has not seen a neurologist in several years. At the time of admit she reports right eye blurriness has resolved (it comes & goes), heart fluttering, confusion, as has her left arm numbness and tingling, she continues to report feeling slightly shaky and SOB, though she is resting comfortably in bed in no distress at this time. She endorses discomfort in the right eye with lateral eye movement, and able to reproduce soreness and discomfort to right orbit with palpation. Denies any recent injury or trauma. Because she experienced gestational diabetes with each of her pregnancies, she thought perhaps she was having diabetes blood sugar issues, attempted eating candy bars -but this did not improve her symptoms.? She verbalizes that she does not understand how diabetes works, nor how to treat it. Patient reports she chronically has increased thirst, does drink fairly large amount of coffee and red Bulls, urinates at least once nightly, and has difficulty maintaining her weight(Weight Loss). She states that she has gained some weight recently and successfully been able to keep it on. Patient suffers from occasional moderate to severe skin sensitivity, burning and pain to light touch of her lower extremities. On admit patient denies weakness, numbness, tingling, headache, falls, balance or coordination issues, difficulty with ambulation, swallowing, dexterity or fine motor skills, chest pain, palpitations, fevers, body aches, chills, cold, cough, congestion, abdominal pain, nausea, vomiting, diarrhea, constipation, urinary urgency, frequency, dysuria, swelling of extremities, skin wounds or infections, bleeding from mouth, in urine or stool.? She notes increased stress and feels anxious as 1 of her children is in addiction treatment center and 1 is actively using substances on the streets.? She is had a prior appendectomy and tubaligation, no daily medications.? She has received IV steroids in the past.? She is allergic to sumatriptan and diclofenac.? No tobacco, rare alcohol 1 or 2 times yearly, no illicit.? She is no longer establish with primary but was seeing the [facility].? She also requests to be evaluated wit h drug screen as her work place thought she was high. Patient's b/p tends to run 90/60 range. Vitals on admit temp 97.7?, BP 86/57, HR 72, R 15, O2 saturation 98% on room air. NIH:0CBC, CMP, and liver panel WNL with the exception of potassium 3.3 troponin, magnesium lipase, tox screen are all WNL/negative. Head neck CTA documented normally exam. Chest x-ray negative for any acute cardiopulmonary process. EKG sinus rhythm with a rate of [address] or T-wave changes. Patient admitted for visual changes, rule out stroke, mild hypokalemia. ? Patient History Medical History Multiple sclerosis Surgical History Status post appendectomy Status post dilation and curettage Family & Social History Family History (Updated 04/28/22 @ 02:05 by KACI Johnson) Mother Epilepsy Diabetes mellitus Congestive heart failure Father Cancer Safety & Behavioral: Feels Safe in Current Yes Environment Been Physically Hurt or No Threatened By a Person Tobacco & Substance use: Smoking Status Never smoker alcohol intake frequency holiday/special occasion Substance Use Type does not use Meds Home Medications and Allergies Home Medications Medication Instructions Recorded Confirmed Type diazepam 10 mg tablet (Valium) 10 mg PO TID PRN muscle spasm #14 03/05/21 04/28/22 Rx tabs gabapentin 300 mg capsule 300 mg PO BID 09/25/21 04/28/22 History Allergies Allergy/AdvReac Type Severity Reaction Status Date / Time diclofenac Allergy Intermediate CHEST PAIN Unverified 03/24/22 10:01 piroxicam Allergy Mild HIVES Unverified 03/24/22 10:01 sumatriptan Allergy Unknown Unverified 03/24/22 10:01 Review of Systems Review of Systems Narrative: All 12 point systems reviewed with the patient and are negative except otherwise documented. Exam Vital Signs (past 8 hours): - 04/27/22 18:12 04/27/22 19:59 04/27/22 20:00 Temperature 97.7 F Pulse Rate 92 H 78 Respiratory Rate 20 Blood Pressure 129/89 107/70 Pulse Oximetry 99 98 Oxygen Delivery Method Room Air 04/27/22 20:00 04/27/22 20:30 04/27/22 20:30 Temperature Pulse Rate 78 72 Respiratory Rate 15 Blood Pressure 86/57 L Pulse Oximetry 98 98 Oxygen Delivery Method 04/27/22 20:33 04/27/22 20:33 04/27/22 20:40 Temperature Pulse Rate 80 73 Respiratory Rate 18 26 H Blood Pressure 95/60 Pulse Oximetry 99 99 Oxygen Delivery Method 04/27/22 20:40 04/27/22 20:41 04/27/22 20:41 Temperature Pulse Rate 69 Respiratory Rate 25 H Blood Pressure 100/59 L 103/64 Pulse Oximetry 99 Oxygen Delivery Method 04/27/22 20:50 04/27/22 20:50 04/27/22 21:12 Temperature Pulse Rate 82 86 Respiratory Rate 29 H 15 Blood Pressure 105/72 Pulse Oximetry 99 97 Oxygen Delivery Method 04/27/22 21:30 04/27/22 22:00 04/27/22 22:09 Temperature Pulse Rate 80 79 Respiratory Rate 15 13 Blood Pressure 80/52 L Pulse Oximetry 97 97 Oxygen Delivery Method 04/27/22 22:09 04/27/22 22:10 04/27/22 22:10 Temperature Pulse Rate 91 H 92 H Respiratory Rate 20 14 Blood Pressure 86/54 L Pulse Oximetry 97 97 Oxygen Delivery Method 04/27/22 22:30 04/27/22 22:30 04/27/22 23:00 Temperature Pulse Rate 80 Respiratory Rate 12 Blood Pressure 93/55 L 94/57 L Pulse Oximetry 98 Oxygen Delivery Method 04/27/22 23:00 Temperature Pulse Rate 83 Respiratory Rate Blood Pressure Pulse Oximetry 99 Oxygen Delivery Method Oxygen Delivery Method Room Air Narrative Exam Narrative: General: Patient is a well-developed, well-nourished pleasant 36-year-old female in no distress at this time. HEENT: Normocephalic, atraumatic, extraocular muscles intact, oral pharynx is clear and mucous membranes are moist. Neck is supple and symmetric, trachea is midline, no adenopathy, no thyroid enlargement, nontender, no masses palpated. Negative for JVD Chest: Normal AP diameter and contour without kyphoscoliosis, no nasal flaring, retractions, or tachypneic labored Lungs: Auscultation of all lung morocho are clear without adventitious sounds, wheezes, rhonchi, or rales. Cardio: S1 & S2 with regular rate and rhythm without murmur, rubs, or gallops, no carotid bruit, no cardiac pulsations present. Abdomen: Soft nontender, negative for organomegaly, or masses. Bowel sounds are present in all 4 quadrants without guarding or rebound, no CVA tenderness. Musculoskeletal: Muscle strength and tone are equal within normal limits, no deformity, crepitus, effusions, cyanosis, clubbing or edema present. Full range of motion intact radial and pedal pulses are normal. Skin: Warm dry and intact without rashes, ulcerations or petechiae. Neuro: Alert and orientated x3, strength is +5/5 in all extremities, sensation to touch intact, no gross deficits noted of cranial nerves.NIH:0 Psych: Patient has a well-kept appearance, appropriate affect, mental status attitude thought context and judgment are appropriate for age. Objective Labs Result Diagrams: 04/27/22 18:45 04/27/22 18:45 Labs: Laboratory Results - last 24 hr 04/27/22 04/27/22 04/27/22 18:45 18:45 18:45 WBC 7.7 RBC 4.37 Hgb 13.0 Hct 37.9 MCV 86.9 MCH 29.9 MCHC 34.4 RDW 13.5 Plt Count 217 Neut % (Auto) 60.3 Lymph % (Auto) 29.1 Churchill % (Auto) 6.6 Eos % (Auto) 3.5 Baso % (Auto) 0.5 Neut # (Auto) 4600 Lymph # (Auto) 2200 Churchill # (Auto) 500 Eos # (Auto) 300 Baso # (Auto) 0 Sodium 139 Potassium 3.3 L Chloride 102 Carbon Dioxide 27 BUN 10 Creatinine 0.49 L Estimated GFR > 60 BUN/Creatinine Ratio 20.4 Glucose 87 Calcium 9.1 Magnesium 2.0 Total Bilirubin 0.7 AST 23 ALT 20 Alkaline Phosphatase 68 Total Creatine Kinase 36 CK-MB (CK-2) TNP CK-MB (CK-2) Rel Index TNP Troponin I < 0.012 Total Protein 7.9 Albumin 4.5 Globulin 3.4 Albumin/Globulin Ratio 1.3 Lipase 106 U Opiates 300ng/mL cut Negative Ur Oxycodone Screen Negative Urine Methadone Screen Negative Ur Barbiturates Screen Negative U Tricyclic Antidepress Negative Ur Phencyclidine Scrn Negative Ur Amphetamines Screen Negative U Methamphetamines Scrn Negative Ur MDMA Scrn (Ecstasy) Negative U Benzodiazepines Scrn Negative Urine Cocaine Screen Negative U Marijuana (THC) Screen Negative Assessment & Plan Assessment & Plan narrative: Velia Hannah is a 36 yr old female with a past medical history MS diagnosis in 2013 (Lesion to Optic Nerve) with peripheral neuropathy and hx gestational diabetes who presented to the ED this evening complaining of a multitude of symptoms. She has been feeling extremely fatigued, lethargic, confused, blurry vision to the right eye (today,new), chronic left jaw line numbness, mild SOB over the past week, trouble staying awake, increasing clumps of hair falling out, shaky, occasionally fluttering in her chest and numbness that radiates down her left arm.?Ed consulted with neurology- recommended patient be admitted for observation as a stroke rule out and to include a cervical MRI due to diagnosis of multiple sclerosis. 1. 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 We will also rule out orthostatic hypotension, hypoglycemia/DM, hypothyroidism, adrenal insufficiency stroke and cervical cord involvement. -patient admitted under stroke protocol -monitored on telemedicine, orthostatics Q 4 while awake -aspiration precautions, bedside swallow, neuro checks, an NIH is needed -ordered A1c, TSH, lipids, cortisol-trend troponins -potassium 3.3 on admit 20 mEq p.o. provided, trend electrolytes -Lipitor Plavix ASA per protocol -consult ordered PT/OT/speech/discharge/dietary -stroke MR, and C-spine MR tomorrow 2. Multiple sclerosis, optic nerve lesion resulting in visual changes of the left eye, with peripheral neuropathy, chronic, present on admission -patient will need to establish with new neurologist for continued management of MS -last eye exam September 2021 -stroke MR and C-spine MR tomorrow 3. Underweight, acute on chronic, present on admission -as evidence by BMI of 21.1 -dietary consult ordered for patient education regarding nutrition, protein and exercise and lifestyle changes. -patient's underweight status will impact her multiple sclerosis disease process poorly due to lack of nutrition for muscle development, resulting in weakness, deconditioning, impaired immunity, ability to heal & recovery from illness, and manage MS flares. Code status:Full Surrogate decision maker: Jerry Hannah Spouse COVID PCR:Negative DVT/VTE prophylaxis:Lovenox & SCD's Disposition: Patient admitted for overnight observation to rule out stroke, LEAD SYSTEMS ARCHITECT lesions r/t MS. I have utilized all available immediate resources to obtain, update, or review the patient's current medications. I confirmed that the patient's advanced care plan is present, Code status is documented and/or surrogate decision maker is listed in the patient's medical record. Time Spent With Patient Critical Care time: I spent a total of [] minutes of critical care time on this patient's care today; this time is exclusive of procedural time.
[2022-04-27 23:27] LABS: INR 1.1 (0.9-1.3); Prothrombin Time 12.1 SECONDS (10.1-12.7)
[2022-04-27 23:32] LABS: Cholesterol 177 mg/dL (140-199); HDL Cholesterol 65 mg/dL (40-60); Hemoglobin A1C% w Est Avg Glu 5.1 % (4.0-6.0); LDL Cholesterol Calculated 100 mg/dL (<100); Triglycerides 60 mg/dL (35-150)
[2022-04-28 00:03] LABS: Cortisol PM (After 5PM) 2.87 ug/dL (1.7-14.1); Thyroid Stimulating Hormone 2.95 uIU/mL (0.47-4.68)
[2022-04-28] MEDS: ATORVASTATIN 20 MG TABLET PO (01:26)
[2022-04-28 01:37] LABS: COVID19 - ADMIT (NP swab/PCR) Negative (Negative)
[2022-04-28 01:39] LABS: Troponin I < 0.012 ng/mL (0.01-0.034)
[2022-04-28 03:05] VITALS: O2SAT 98
[2022-04-28 04:37] VITALS: BP 97/56; PULSE 86; RESP 18; TEMP 36.8; O2SAT 98
--- NOTE | 2022-04-28 05:47 | PC.NURSE ---
Patient passing swallow eval and drinking fluids without incidence. Alert and oriented x4. Denies pain. Postural vital signs completed without incidence. Patient states and nausea she had earlier has resolved,. 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 Patient states she has some intermittent left shoulder pain that radiates from her elbow to her her forearm. Patient relates that she is free of pain and denies any blurriness of her eyes currently. Patients BP is stable 97/56. Patient does relate some left facial numbness that waxes and wanes. She reports feeling better after the IV fluid bolus.
[2022-04-28 07:00] VITALS: O2SAT 98
[2022-04-28 07:05] LABS: BUN Creatinine Ratio 17.3 (6-22); Blood Urea Nitrogen 9 mg/dL (7-17); Calcium 8.5 mg/dL (8.4-10.2); Carbon Dioxide 25 mmol/L (22-32); Chloride 108 mmol/L (98-107); Estimated Glomerular Filt Rate > 60 mL/min (>60); Glucose 96 mg/dL (70-100); HEMOLYSIS < 15 (0-50); Potassium 4.1 mmol/L (3.4-5.1); Sodium 139 mmol/L (137-145)
[2022-04-28 07:16] LABS: Troponin I < 0.012 ng/mL (0.01-0.034)
[2022-04-28 07:40] LABS: Cortisol AM (Before 10AM) 12.9 ug/dL (4.46-22.7)
[2022-04-28 08:00] VITALS: RESP 19; TEMP 36.9; O2SAT 98
[2022-04-28 08:06] VITALS: BP 87/52; BP 88/63; BP 90/60; PULSE 75; PULSE 95; PULSE 99
[2022-04-28] MEDS: ACETAMINOPHEN 325 MG TABLET 650 MG PO (08:49)
[2022-04-28] MEDS: ENOXAPARIN 40 MG/0.4 ML SYRINGE SUBCUT (08:49)
[2022-04-28] MEDS: CLOPIDOGREL 75 MG TABLET PO (08:50)
[2022-04-28] MEDS: ASPIRIN EC 81 MG TABLET PO (08:50)
[2022-04-28 09:59] LABS: Appearance Urine UA CLEAR; Bilirubin Urine UA NEGATIVE (NEGATIVE); Color Urine UA YELLOW; Glucose Urine UA TRACE g/dL (Negative); Ketones Urine UA NEGATIVE (NEGATIVE); Leukocyte Esterase Urine UA NEGATIVE (NEGATIVE); Nitrite Urine UA NEGATIVE (Negative); Occult Blood Urine UA NEGATIVE (Negative); Protein Urine UA NEGATIVE (Negative); Urobilinogen Urine UA 0.2 E.U./dL (0.2)
[2022-04-28 10:09] LABS: Bacteria Urine None Seen; Culture Indicated Urine Cult Not Indicated; RBC Urine 0-1/HPF (0-5/HPF); Squamous Epithelial Cell Urine 1-5 /HPF (0-5/HPF); WBC Urine 0-1/HPF (0-5/HPF)
[2022-04-28 11:00] VITALS: O2SAT 96
--- NOTE | 2022-04-28 11:21 | CM.DANOTE ---
DCP Assessment: Payor: [employer] [employer] PCP: Unknown Pt is a 36 y.o. F who presented to the ER with a chief complaint of having trouble staying awake. Pt also told ED MD that she is having clumps of hair falling out and felt shaky with blurry vision and fluttering in chest. Pt has history of MS. Pt is being followed by Dr. Contreras @ [facility]. Pt admitted to the floor for further workup of stroke as well as MS flare up. DCP met with patient this morning to discuss discharge planning. Pt sitting up in bed. DCP introduced self and role. Pt independent at baseline. Pt lives with spouse. Still drives POV. Pt spouse, Jonah, at the bedside. No discharge needs. White board updated and instructed to call if any questions arise. P: Once pt is medically stable for discharge, pt can discharge home via spouse POV. Emi Burdick RN/DASIA Discharge Planning/Care Management CM Discharge Assessment Start: 04/28/22 09:02 Freq: Status: Active Protocol: Document 04/28/22 11:20 LILI (Rec: 04/28/22 11:21 [id number]) Discharge Planning Assessment Assigned Gis Instructor Emi Burdick RN/DASIA Advance Directives? No History Provided By Patient Prior Living Arrangements House Household Members spouse,children Type of transporation used prior to Drives own vehicle admit Discharge Plan Home Transportation Arrangement Spouse POV Referrals Initiated None needed Whiteboard Updated in Patient Room with Yes name and ext. # of Gis Instructor Comment Instructed to call Review Status In Process Please Provide Date Initial DC 04/28/22 Assessment Was Performed Next Review Type Continued Stay Review
--- NOTE | 2022-04-28 12:58 | PM.DS.1 ---
History of Present Illness History of Present Illness Date Patient Seen: 04/27/22 Time Patient Seen: 23:24 Chief complaint: Having a Diabetic Episode Narrative: Per admitting provider: Velia Hannah is a 36 yr old female with a past medical history MS diagnosis in 2013 (Lesion to Optic Nerve) with peripheral neuropathy and hx gestational diabetes who presented to the ED this evening complaining of a multitude of symptoms. She has been feeling extremely fatigued, lethargic, confused, blurry vision to the right eye (today,new), chronic left jaw line numbness, mild SOB over the past week, trouble staying awake, increasing clumps of hair falling out, shaky, occasionally fluttering in her chest and numbness that radiates down her left arm.? Patient states she has not appreciated dropping anything.? She states symptoms specifically the vision change and numbness tingling in her arm started today, but she generally overall is feeling very poorly. 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 Patient's last eye exam was September of 2021 in which she was advised by taproom attendant to get a brain for unknown reasons. Patient has multiple sclerosis diagnosis asymptomatic by visual changes in the left eye, impaired peripheral vision, and inflammation and pain along the left optic nerve with occasional numbness along the left jawline. She has not experienced vision changes in the right prior. NIH:2 in ED due to visual changes. Patient had been prescribed gabapentin for the neuropathy, and Solu-Medrol or some form of steroids to treat inflammation or flares. The patient does not like the way the steroids or the gabapentin makes her feel and so has not been taking any of those medications for some time. She also had moved and has not seen a neurologist in several years. At the time of admit she reports right eye blurriness has resolved (it comes & goes), heart fluttering, confusion, as has her left arm numbness and tingling, she continues to report feeling slightly shaky and SOB, though she is resting comfortably in bed in no distress at this time. She endorses discomfort in the right eye with lateral eye movement, and able to reproduce soreness and discomfort to right orbit with palpation. Denies any recent injury or trauma. Because she experienced gestational diabetes with each of her pregnancies, she thought perhaps she was having diabetes blood sugar issues, attempted eating candy bars -but this did not improve her symptoms.? She verbalizes that she does not understand how diabetes works, nor how to treat it. Patient reports she chronically has increased thirst, does drink fairly large amount of coffee and red Bulls, urinates at least once nightly, and has difficulty maintaining her weight(Weight Loss). She states that she has gained some weight recently and successfully been able to keep it on. Patient suffers from occasional moderate to severe skin sensitivity, burning and pain to light touch of her lower extremities. On admit patient denies weakness, numbness, tingling, headache, falls, balance or coordination issues, difficulty with ambulation, swallowing, dexterity or fine motor skills, chest pain, palpitations, fevers, body aches, chills, cold, cough, congestion, abdominal pain, nausea, vomiting, diarrhea, constipation, urinary urgency, frequency, dysuria, swelling of extremities, skin wounds or infections, bleeding from mouth, in urine or stool.? She notes increased stress and feels anxious as 1 of her children is in addiction treatment center and 1 is actively using substances on the streets.? She is had a prior appendectomy and tubaligation, no daily medications.? She has received IV steroids in the past.? She is allergic to sumatriptan and diclofenac.? No tobacco, rare alcohol 1 or 2 times yearly, no illicit.? She is no longer establish with primary but was seeing the [facility].? She also requests to be evaluated with drug screen as her work place thought she was high. Patient's b/p tends to run 90/60 range. Vitals on admit temp 97.7?, BP 86/57, HR 72, R 15, O2 saturation 98% on room air. NIH:0CBC, CMP, and liver panel WNL with the exception of potassium 3.3 troponin, magnesium lipase, tox screen are all WNL/negative. Head neck CTA documented normally exam. Chest x-ray negative for any acute cardiopulmonary process. EKG sinus rhythm with a rate of [address] or T-wave changes. Patient admitted for visual changes, rule out stroke, mild hypokalemia. ? Discharge Providers Provider Date of admission: 04/27/22 23:03 Discharge Date: 04/28/22 Primary care physician: Doctor Kimberley MD Consults: 04/27/22 23:00 Consult to Discharge Planning Routine Comment: Consult to Occupational Therapy Evaluate & Treat Comment: Physician Instructions: Evaluate and treat Consult to Physical Therapy Evaluate & Treat Comment: Physician Instructions: Evaluate and Treat Consult to Speech Therapy Evaluate & Treat Comment: Physician Instructions: Evaluate and treat 04/27/22 23:10 Consult to Dietitian, Adult Stat Comment: Reason For Exam: Underwt BMI 21.1 Discharge provider: Scott Jennings MD Summary Hospital Course Discharge Diagnosis: 1. Blurry vision 2. Multiple sclerosis 3. Fatigue Hospital Course: Ms. Hannah presented to the hospital with multiple symptoms including chronic left arm numbness. New visual blurriness. She also noted fatigue. She has a known history of MS, but no recent flares, and is not taking any medications. She had imaging done which showed small stable t2-weighted hyperintensities unchanged since 2017. MRI of spine showed no acute process. She was feeling improved. She was able to be discharged home. She is recommended to follow closely and with her PCP and follow up with neurology. She is also recommended to see ophthalmology for her blurry vision. Exam Vital Signs (past 8 hours): - 04/28/22 07:00 04/28/22 08:00 04/28/22 08:06 Temperature 98.5 F Pulse Rate [Orthostatic Lying] 75 Pulse Rate [Orthostatic Sitting] 95 H Pulse Rate [Orthostatic Standing] 99 H Respiratory Rate 19 Blood Pressure [Orthostatic Lying] 87/52 L Blood Pressure [Orthostatic Sitting] 88/63 L Blood Pressure [Orthostatic Standing] 90/60 Pulse Oximetry 98 98 Oxygen Delivery Method Room Air Oxygen Flow Rate 0 04/28/22 11:00 Temperature Pulse Rate [Orthostatic Lying] Pulse Rate [Orthostatic Sitting] Pulse Rate [Orthostatic Standing] Respiratory Rate Blood Pressure [Orthostatic Lying] Blood Pressure [Orthostatic Sitting] Blood Pressure [Orthostatic Standing] Pulse Oximetry 96 Oxygen Delivery Method Room Air Oxygen Flow Rate Oxygen Delivery Method Room Air Oxygen Flow Rate 0 Narrative Exam Narrative: GEN: no acute distress CV: regular rate and rhythm, no murmurs PULM: clear bilaterally Objective Labs Result Diagrams: 04/27/22 18:45 04/28/22 06:50 Labs: Laboratory Results - last 24 hr 04/27/22 04/27/22 04/27/22 18:45 18:45 18:45 WBC 7.7 RBC 4.37 Hgb 13.0 Hct 37.9 MCV 86.9 MCH 29.9 MCHC 34.4 RDW 13.5 Plt Count 217 Neut % (Auto) 60.3 Lymph % (Auto) 29.1 [place] % (Auto) 6.6 Eos % (Auto) 3.5 Baso % (Auto) 0.5 Neut # (Auto) 4600 Lymph # (Auto) 2200 [place] # (Auto) 500 Eos # (Auto) 300 Baso # (Auto) 0 PT INR Sodium 139 Potassium 3.3 L Chloride 102 Carbon Dioxide 27 BUN 10 Creatinine 0.49 L Estimated GFR > 60 BUN/Creatinine Ratio 20.4 Glucose 87 Hemoglobin A1c Calcium 9.1 Magnesium 2.0 Total Bilirubin 0.7 AST 23 ALT 20 Alkaline Phosphatase 68 Total Creatine Kinase 36 CK-MB (CK-2) TNP CK-MB (CK-2) Rel Index TNP Troponin I < 0.012 Total Protein 7.9 Albumin 4.5 Globulin 3.4 Albumin/Globulin Ratio 1.3 Triglycerides Cholesterol LDL Cholesterol, Calc HDL Cholesterol Lipase 106 TSH Cortisol AM Sample Cortisol PM Sample Urine Color Urine Appearance Urine pH Ur Specific [place] Urine Protein Urine Glucose (UA) Urine Ketones Urine Occult Blood Urine Nitrate Urine Bilirubin Urine Urobilinogen Ur Leukocyte Esterase Urine RBC Urine WBC Ur Squamous Epith Cells Urine Bacteria Ur Culture Indicated? Nasal Screen MRSA (PCR) U Opiates 300ng/mL cut Negative Ur Oxycodone Screen Negative Urine Methadone Screen Negative Ur Barbiturates Screen Negative U Tricyclic Antidepress Negative Ur Phencyclidine Scrn Negative Ur Amphetamines Screen Negative U Methamphetamines Scrn Negative Ur MDMA Scrn (Ecstasy) Negative U Benzodiazepines Scrn Negative Urine Cocaine Screen Negative U Marijuana (THC) Screen Negative SARS-CoV-2 (PCR) 04/27/22 04/27/22 04/27/22 18:45 18:45 18:45 WBC RBC Hgb Hct MCV MCH MCHC RDW Plt Count Neut % (Auto) Lymph % (Auto) [place] % (Auto) Eos % (Auto) Baso % (Auto) Neut # (Auto) Lymph # (Auto) [place] # (Auto) Eos # (Auto) Baso # (Auto) PT 12.1 INR 1.1 Sodium Potassium Chloride Carbon Dioxide BUN Creatinine Estimated GFR BUN/Creatinine Ratio Glucose Hemoglobin A1c 5.1 Calcium Magnesium Total Bilirubin AST ALT Alkaline Phosphatase Total Creatine Kinase CK-MB (CK-2) CK-MB (CK-2) Rel Index Troponin I Total Protein Albumin Globulin Albumin/Globulin Ratio Triglycerides 60 Cholesterol 177 LDL Cholesterol, Calc 100 HDL Cholesterol 65 H Lipase TSH Cortisol AM Sample Cortisol PM Sample Urine Color Urine Appearance Urine pH Ur Specific [place] Urine Protein Urine Glucose (UA) Urine Ketones Urine Occult Blood Urine Nitrate Urine Bilirubin Urine Urobilinogen Ur Leukocyte Esterase Urine RBC Urine WBC Ur Squamous Epith Cells Urine Bacteria Ur Culture Indicated? Nasal Screen MRSA (PCR) U Opiates 300ng/mL cut Ur Oxycodone Screen Urine Methadone Screen Ur Barbiturates Screen U Tricyclic Antidepress Ur Phencyclidine Scrn Ur Amphetamines Screen U Methamphetamines Scrn Ur MDMA Scrn (Ecstasy) U Benzodiazepines Scrn Urine Cocaine Screen U Marijuana (THC) Screen SARS-CoV-2 (PCR) 04/27/22 04/27/22 04/28/22 18:45 18:45 00:35 WBC RBC Hgb Hct MCV MCH MCHC RDW Plt Count Neut % (Auto) Lymph % (Auto) [place] % (Auto) Eos % (Auto) Baso % (Auto) Neut # (Auto) Lymph # (Auto) [place] # (Auto) Eos # (Auto) Baso # (Auto) PT INR Sodium Potassium Chloride Carbon Dioxide BUN Creatinine Estimated GFR BUN/Creatinine Ratio Glucose Hemoglobin A1c Calcium Magnesium Total Bilirubin AST ALT Alkaline Phosphatase Total Creatine Kinase CK-MB (CK-2) CK-MB (CK-2) Rel Index Troponin I Total Protein Albumin Globulin Albumin/Globulin Ratio Triglycerides Cholesterol LDL Cholesterol, Calc HDL Cholesterol Lipase TSH 2.95 Cortisol AM Sample Cortisol PM Sample 2.87 Urine Color Urine Appearance Urine pH Ur Specific [place] Urine Protein Urine Glucose (UA) Urine Ketones Urine Occult Blood Urine Nitrate Urine Bilirubin Urine Urobilinogen Ur Leukocyte Esterase Urine RBC Urine WBC Ur Squamous Epith Cells Urine Bacteria Ur Culture Indicated? Nasal Screen MRSA (PCR) U Opiates 300ng/mL cut Ur Oxycodone Screen Urine Methadone Screen Ur Barbiturates Screen U Tricyclic Antidepress Ur Phencyclidine Scrn Ur Amphetamines Screen U Methamphetamines Scrn Ur MDMA Scrn (Ecstasy) U Benzodiazepines Scrn Urine Cocaine Screen U Marijuana (THC) Screen SARS-CoV-2 (PCR) Negative 04/28/22 04/28/22 04/28/22 00:35 01:10 06:50 WBC RBC Hgb Hct MCV MCH MCHC RDW Plt Count Neut % (Auto) Lymph % (Auto) [place] % (Auto) Eos % (Auto) Baso % (Auto) Neut # (Auto) Lymph # (Auto) [place] # (Auto) Eos # (Auto) Baso # (Auto) PT INR Sodium 139 Potassium 4.1 Chloride 108 H Carbon Dioxide 25 BUN 9 Creatinine 0.52 Estimated GFR > 60 BUN/Creatinine Ratio 17.3 Glucose 96 Hemoglobin A1c Calcium 8.5 Magnesium 2.0 Total Bilirubin AST ALT Alkaline Phosphatase Total Creatine Kinase CK-MB (CK-2) CK-MB (CK-2) Rel Index Troponin I < 0.012 Total Protein Albumin Globulin Albumin/Globulin Ratio Triglycerides Cholesterol LDL Cholesterol, Calc HDL Cholesterol Lipase TSH Cortisol AM Sample Cortisol PM Sample Urine Color Urine Appearance Urine pH Ur Specific [place] Urine Protein Urine Glucose (UA) Urine Ketones Urine Occult Blood Urine Nitrate Urine Bilirubin Urine Urobilinogen Ur Leukocyte Esterase Urine RBC Urine WBC Ur Squamous Epith Cells Urine Bacteria Ur Culture Indicated? Nasal Screen MRSA (PCR) Negative for mrsa U Opiates 300ng/mL cut Ur Oxycodone Screen Urine Methadone Screen Ur Barbiturates Screen U Tricyclic Antidepress Ur Phencyclidine Scrn Ur Amphetamines Screen U Methamphetamines Scrn Ur MDMA Scrn (Ecstasy) U Benzodiazepines Scrn Urine Cocaine Screen U Marijuana (THC) Screen SARS-CoV-2 (PCR) 04/28/22 04/28/22 04/28/22 06:50 06:50 09:40 WBC RBC Hgb Hct MCV MCH MCHC RDW Plt Count Neut % (Auto) Lymph % (Auto) [place] % (Auto) Eos % (Auto) Baso % (Auto) Neut # (Auto) Lymph # (Auto) [place] # (Auto) Eos # (Auto) Baso # (Auto) PT INR Sodium Potassium Chloride Carbon Dioxide BUN Creatinine Estimated GFR BUN/Creatinine Ratio Glucose Hemoglobin A1c Calcium Magnesium Total Bilirubin AST ALT Alkaline Phosphatase Total Creatine Kinase CK-MB (CK-2) CK-MB (CK-2) Rel Index Troponin I < 0.012 Total Protein Albumin Globulin Albumin/Globulin Ratio Triglycerides Cholesterol LDL Cholesterol, Calc HDL Cholesterol Lipase TSH Cortisol AM Sample 12.9 Cortisol PM Sample Urine Color Yellow Urine Appearance Clear Urine pH 7.0 Ur Specific [place] 1.010 Urine Protein Negative Urine Glucose (UA) Trace H Urine Ketones Negative Urine Occult Blood Negative Urine Nitrate Negative Urine Bilirubin Negative Urine Urobilinogen 0.2 Ur Leukocyte Esterase Negative Urine RBC 0-1/hpf Urine WBC 0-1/hpf Ur Squamous Epith Cells 1-5 /hpf Urine Bacteria None seen Ur Culture Indicated? Cult not indicated Nasal Screen MRSA (PCR) U Opiates 300ng/mL cut Ur Oxycodone Screen Urine Methadone Screen Ur Barbiturates Screen U Tricyclic Antidepress Ur Phencyclidine Scrn Ur Amphetamines Screen U Methamphetamines Scrn Ur MDMA Scrn (Ecstasy) U Benzodiazepines Scrn Urine Cocaine Screen U Marijuana (THC) Screen SARS-CoV-2 (PCR) [facility] Medical History Multiple sclerosis Surgical History Status post appendectomy Status post dilation and curettage Family History (Updated 04/28/22 @ 02:05 by KACI Johnson) Mother Epilepsy Diabetes mellitus Congestive heart failure Father Cancer Social History household members: spouse and children Smoking Status: Never smoker Discharge Plan Discharge Plan Patient Disposition: Home Provider Discharge Comment: Ms. Hannah came in to the hospital with primarily fatigue and sleepiness. She also had arm numbness and blurry vision. She had an MRI of her head which showed no change from before, no stroke. Her MRI of spine showed no MS lesion. She should follow up with her PCP, neurologist. She should follow up with an taproom attendant to check her vision. Discharge orders & Medications Prescriptions: Continued gabapentin 300 mg capsule 300 mg PO BID Rx Instructions: Discontinued diazepam [Valium] 10 mg tablet 10 mg PO TID PRN (Reason: muscle spasm) Qty: 14 0RF Label Comments: Discontinued Follow up/Referrals: Doctor Chu MD [Primary Care Provider] - Diet/Activity/Treatments Diet: Regular Discharge Data Primary Care Provider: Doctor Kimberley Attending Provider: Jeannie Ruiz Quality VTE Deep Vein Thrombosis/Pulmonary Embolism Present on Admission: No
== END 2022-04-28 11:46 | disposition home or self-care (01) ==
LOC: ED 20:11 → AC 23:03 → ICU 23:20
PROVIDERS: Internal Medicine; Admitting Provider Nurse Practitioner Family; Emergency Provider Emergency Medicine; Family Provider Obstetrics & Gynecology; Visit Provider Nurse Practitioner Family
DX: R00.2 Palpitations (principal); H53.8 Other visual disturbances; R53.83 Other fatigue; R20.0 Anesthesia of skin; R29.703 NIHSS score 3; G35 Multiple sclerosis; R63.6 Underweight; Z68.21 Body mass index [BMI] 21.0-21.9, adult; Z20.822 Contact with and (suspected) exposure to COVID-19
CPT/HCPCS: 36415; 70496; 70498; 70553; 71045; 72156; 80048; 80053; 80061; 80305; 81001; 81003; 81025; 82533; 82550; 82962; 83036; 83690; 83735; 84443; 84484; 85025; 85610; 87635; 87797; 93005; 96360; 96361; 96372; 99285; C9803; G0378; J1650; Q9967

== ENCOUNTER 2023-01-19 11:30 | Emergency (ER) | payer MEDICAID, SELFPAY ==
[2022-04-27 23:44] VITALS: BMI 21.1
[2023-01-19 11:32] VITALS: BP 106/71; PULSE 90; RESP 18; TEMP 36.9; O2SAT 98; BMI 21.4
[2023-01-19 12:27] LABS: Bacteria Urine Occasional (0-1); RBC Urine 1-5/HPF (0-5/HPF); Squamous Epithelial Cell Urine 0-1 /HPF (0-5/HPF); WBC Urine 10-30/HPF (0-5/HPF)
[2023-01-19 12:28] LABS: Culture Indicated Urine Cult Not Indicated
--- NOTE | 2023-01-19 12:36 | ED.NECK ---
HPI - Neck Pain/Injury <Ileana Ramírez PA-C - Last Filed: 01/19/23 13:18> General Chief Complaint: Neck Pain/Injury Stated Complaint: NECK HURTS, FELT POP, AND PAIN SPREADING, uti Time Seen by Provider: 01/19/23 11:33 Mode of arrival: Ambulatory History of Present Illness HPI Narrative: Patient is a 37-year-old female presenting for evaluation of neck pain starting 3 days ago. She reports a previous history of a disc bulge in the same location. She says it has not hurt her before. She denies any trauma, but notes that she was doing housework when she felt a pop in her neck. She says that she felt some pain radiating down her right arm. She states that it feels wet almost in the medial aspect of her right arm. She denies any dropping of objects nor any vision changes outside of the ordinary due to her MS. She denies any numbness unless the area on her neck is being manipulated. She denies any fever, body aches or chills or any chest pain shortness to breath any nausea vomiting diarrhea or constipation. She does note that this morning she also felt some urinary urgency in his wondering if this is due to sitting in the hot tub yesterday to help ease her neck pain. She reports that she has not appointment with her MS doctor in January. She says she has not been seen for her MS in several years. She denies any abdominal pain or back pain otherwise. She denies any weakness in her right arm. She reports that rotational movement and flexion of her neck is quite painful. She also reports increased pain with abduction and flexion over 90 ? of her right arm. She reports less pain with internal and external rotation. She reports that she takes ibuprofen and naproxen without any issue or allergic reaction. She reports her last ibuprofen was yesterday. Related Data Home Medications Medication Instructions Recorded Confirmed gabapentin 300 mg capsule 300 mg PO BID 09/25/21 04/28/22 Previous Rx's Medication Instructions Recorded diazepam 10 mg tablet (Valium) 10 mg PO TID PRN muscle spasm #14 03/05/21 tabs baclofen 5 mg tablet 5 mg PO TID PRN muscle spasm #30 01/19/23 tabs nitrofurantoin 100 mg PO Q12H 5 days #10 caps 01/19/23 monohydrate/macrocrystals 100 mg capsule (Macrobid) Allergies Allergy/AdvReac Type Severity Reaction Status Date / Time diclofenac Allergy Intermediate CHEST PAIN Verified 04/28/22 09:32 piroxicam Allergy Mild HIVES Verified 04/28/22 09:33 sumatriptan Allergy Unknown Verified 04/28/22 09:33 Review of Systems <Ileana Ramírez PA-C - Last Filed: 01/19/23 13:18> Review of Systems Narrative: Pertinent positives and negatives noted in HPI. Patient History <Ileana Ramírez PA-C - Last Filed: 01/19/23 13:18> Medical History Multiple sclerosis Surgical History Status post appendectomy Status post dilation and curettage Family History Mother Epilepsy Diabetes mellitus Congestive heart failure Father Cancer Social History household members: spouse and children Smoking Status: Former smoker Smoking Status: Former smoker alcohol intake frequency: holidays/special occasions only Substance Use Type: does not use Exam <Ileana Ramírez PA-C - Last Filed: 01/19/23 13:18> Initial Vital Signs Initial Vital Signs: Vital Signs Temperature 98.4 F 01/19/23 11:32 Pulse Rate 90 01/19/23 11:32 Respiratory Rate 18 01/19/23 11:32 Blood Pressure 106/71 01/19/23 11:32 Pulse Oximetry 98 01/19/23 11:32 Oxygen Delivery Method Room Air 01/19/23 11:32 GENERAL: 37 year old patient appears stated age. Well-developed patient, in no acute distress. HEAD: Atraumatic. Normocephalic. EYES: Pupils equal round and reactive. Extraocular motions intact. No scleral icterus. No injection or drainage. NECK: Trachea midline. Non tender. CARDIOVASCULAR: Regular rate and rhythm without murmurs, gallops, or rubs. RESPIRATORY: Clear to auscultation. Breath sounds equal bilaterally. No wheezes, rales, or rhonchi. GASTROINTESTINAL: Abdomen soft, non-tender, nondistended. No CVA tenderness or suprapubic tenderness. EXTREMITIES: No edema or joint tenderness. Patient bilateral elbow flexion, extension intact. She has pain in her neck with elbow flexion. She demonstrates reduced range of motion secondary to pain in her mid back around T1. She can not abduct her right arm over 90? or flex over 90. 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 DTR 1+ bilaterally at elbow. She is reduced neck flexion extension and rotational movement secondary to pain. BACK: Nontender to midline C-spine, tenderness increasing towards C7 and T1-T2. NEURO: AOx3. CN 3 through 12 intact, strength intact bilaterally in upper and lower extremities SKIN: No rash or erythema of visible areas <Ree Bolton DO - Last Filed: 01/20/23 07:02> Initial Vital Signs Initial Vital Signs: Vital Signs Temperature 98.4 F 01/19/23 11:32 Pulse Rate 90 01/19/23 11:32 Respiratory Rate 18 01/19/23 11:32 Blood Pressure 106/71 01/19/23 11:32 Pulse Oximetry 98 01/19/23 11:32 Oxygen Delivery Method Room Air 01/19/23 11:32 Course <Ileana Ramírez PA-C - Last Filed: 01/19/23 13:18> Orders Ordered: Discontinued Medications Baclofen (Baclofen 10 Mg Tablet) 10 mg PO NOW ONE Stop: 01/19/23 12:30 Last Admin: 01/19/23 12:50 Dose: 10 mg Documented By: SANTOSH Ketorolac Tromethamine (Ketorolac 30 Mg/Ml Vial) 30 mg IM NOW ONE Stop: 01/19/23 12:30 Last Admin: 01/19/23 12:48 Dose: 30 mg Documented By: SANTOSH Vital Signs Vital signs: Vital Signs - 8 hr 01/19/23 11:32 01/19/23 13:13 Temperature 98.4 F Pulse Rate 90 72 Respiratory Rate 18 Blood Pressure 106/71 98/54 L Pulse Oximetry 98 99 Oxygen Delivery Method Room Air Room Air <Ree Bolton DO - Last Filed: 01/20/23 07:02> Orders Ordered: Discontinued Medications Baclofen (Baclofen 10 Mg Tablet) 10 mg PO NOW ONE Stop: 01/19/23 12:30 Last Admin: 01/19/23 12:50 Dose: 10 mg Documented By: SANTOSH Ketorolac Tromethamine (Ketorolac 30 Mg/Ml Vial) 30 mg IM NOW ONE Stop: 01/19/23 12:30 Last Admin: 01/19/23 12:48 Dose: 30 mg Documented By: SANTOSH Vital Signs Vital signs: Vital Signs - 8 hr 01/19/23 11:32 01/19/23 13:13 Temperature 98.4 F Pulse Rate 90 72 Respiratory Rate 18 Blood Pressure 106/71 98/54 L Pulse Oximetry 98 99 Oxygen Delivery Method Room Air Room Air MDM - Neck Pain/Injury <Ileana Ramírez PA-C - Last Filed: 01/19/23 13:18> Lab Data Labs: Lab Results 01/19/23 Range/Units 11:58 Urine RBC 1-5/hpf (0-5/HPF) Urine WBC 10-30/hpf H (0-5/HPF) Ur Squamous Epith Cells 0-1 /hpf (0-5/HPF) Urine Bacteria Occasional (0-1) (None) Ur Culture Indicated? Cult not indicated Point of Care Testing Test Results Negative Urine Dip Bedside Urine Glucose Negative Bedside Urine Bilirubin - Negative Bedside Urine Ketone - Negative Urine Specific Dewart 1.010 Bedside Urine Occult Blood +++ Bedside Urine pH 6.0 Bedside Urine Protein +/- 15 Bedside Urine Urobilinogen - Negative Bedside Urine Nitrite - Negative Bedside Urine Leukocytes +++ 500 Esterase MDM Narrative Medical decision making narrative: Patient is a 37-year-old female presenting for evaluation of acute onset neck pain starting 3 days ago with no episode of trauma. She has an odd sensation in the T1 distribution of her right arm. Direct palpation of T1 causes numbness and tingling down her right arm. She has decreased range of motion with neck flexion extension and rotation of movement secondary to the pain in her neck. She was treated with Toradol 30 mg and baclofen 10 mg today to help relieve her pain. Differential diagnoses considered include MS flare, meningitis, spinal hematoma, spinal abscess, bulging disc. Patient's history and physical exam seems most consistent with muscle spasm irritating previously diagnosed bulging disc around her T1-T2 area. I recommend that she continue follow up with her primary care provider orthopedic for further evaluation of this neck pain. I recommend she continue activity as tolerated. I have prescribed a muscle relaxer to help ease her pain. I recommend she take ibuprofen as needed as well as using heat and ice. Discussed treatment plan with her and she is agreeable to go home at this time and follow up with primary care or orthopedic as needed. She reports minimal to no improvement at this time from the medicines given today. She also was treated for UTI today and we discussed for her to drink plenty of water and take antibiotic treatment we will culture urine and follow up with results if changes needed. She is agreeable with this plan of care as well. Prior Charts reviewed: ER visit in March 2022 Patient's symptoms improved over duration of stay with above-stated therapies. Findings and discharge diagnosis discussed with patient/family followed by verbalization of understanding Return precautions discussed with patient/family whom verbalize understanding of diagnosis and plan <Ree Bolton, - Last Filed: 01/20/23 07:02> Lab Data Labs: Lab Results 01/19/23 Range/Units 11:58 Urine RBC 1-5/hpf (0-5/HPF) Urine WBC 10-30/hpf H (0-5/HPF) Ur Squamous Epith Cells 0-1 /hpf (0-5/HPF) Urine Bacteria Occasional (0-1) (None) Ur Culture Indicated? Cult not indicated Point of Care Testing Test Results Negative Urine Dip Bedside Urine Glucose Negative Bedside Urine Bilirubin - Negative Bedside Urine Ketone - Negative Urine Specific Dewart 1.010 Bedside Urine Occult Blood +++ Bedside Urine pH 6.0 Bedside Urine Protein +/- 15 Bedside Urine Urobilinogen - Negative Bedside Urine Nitrite - Negative Bedside Urine Leukocytes +++ 500 Esterase Discharge Plan Departure Patient Disposition: Home Clinical Impression: UTI (urinary tract infection), Neck arthralgia Activity Restrictions/Additional Instructions: We discussed today that you were diagnosed with urinary tract infection because blood and leukocytes were seen in your urine. I recommend drinking plenty of water and taking antibiotic prescribed her pharmacy. Please follow up with her primary care provider if her symptoms do not improve. Please return to emergency department if he should develop fever, body aches or chills or other concerning symptoms. Regarding her neck, we treated you with 30 mg of Toradol today which is related to ibuprofen. Your symptoms sound consistent with a muscle spasm which could be related to the bulging disc you had previously known about in this area. I recommend that you continue follow up with your primary care or an orthopedic such as [facility] orthopedics, phone #[phone] for further evaluation if your neck pain should continue. You may need further evaluation and management if conservative treatment at home and medicines today do not help. You may proceed with activity as tolerated. You may treat with Tylenol and ibuprofen and I will also give you a prescription of a muscle relaxer to take at home. Please do not take prior to driving or work as it may cause drowsiness. Prescriptions: New nitrofurantoin monohyd/m-cryst [Macrobid] 100 mg capsule 100 mg PO Q12H 5 Days Qty: 10 0RF Rx Instructions: must administer with a meal/food baclofen 5 mg tablet 5 mg PO TID PRN (Reason: muscle spasm) Qty: 30 0RF Rx Instructions: May take up to 2 tablets three times a day as needed No Action gabapentin 300 mg capsule 300 mg PO BID Rx Instructions: Discontinued diazepam [Valium] 10 mg tablet 10 mg PO TID PRN (Reason: muscle spasm) Qty: 14 0RF Patient Comments: Discontinued Referrals: Miscellaneous,Doctor, MD [Primary Care Provider] - Stand Alone Forms: Patient Portal/API <Ree Bolton DO - Last Filed: 01/20/23 07:02> Cosign ED Attending Maryanneature Attestation: I was immediately available in the department for consultation. Documentation has been reviewed.
[2023-01-19] MEDS: KETOROLAC 30 MG/ML VIAL IM (12:48)
[2023-01-19] MEDS: BACLOFEN 10 MG TABLET PO (12:50)
[2023-01-19 13:13] VITALS: BP 98/54; PULSE 72; O2SAT 99
== END 2023-01-19 13:19 | disposition home or self-care (01) ==
PROVIDERS: Emergency Medicine; Emergency Provider Physician Assistant; Family Provider Obstetrics & Gynecology
DX: N39.0 Urinary tract infection, site not specified (principal); M54.2 Cervicalgia
CPT/HCPCS: 81003; 81015; 81025; 87077; 87086; 87186; 96372; 99283; J1885

== ENCOUNTER 2024-08-06 12:26 | Emergency (ER) | payer MEDICAID, SELFPAY ==
[2022-04-27 23:44] VITALS: BMI 21.1
[2024-08-06] VITALS (24 sets, daily range): BP systolic 72–121; BP diastolic 44–79; PULSE 71–92; RESP 16–19; TEMP 36.7; O2SAT 97–100; BMI 21.9
[2024-08-06 13:23] LABS: Add Manual Diff / Slide Review NO; Basophils Absolute Auto 0 /uL (0-100); Basophils Percent Auto 0.6 % (0-2); Eosinophils Absolute Auto 200 /uL (0-450); Eosinophils Percent Auto 3.5 % (2-4); Hematocrit 37.5 % (36-46); Hemoglobin 12.9 g/dL (12.0-16.0); Lymphocytes Absolute Auto 1900 /uL (1100-4500); Lymphocytes Percent Auto 27.6 % (25-40); Mean Corpuscular HGB Conc 34.4 % (30-36); Mean Corpuscular Hemoglobin 30.1 PG (26-34); Mean Corpuscular Volume 87.4 fL (80-100); Monocytes Absolute Auto 500 /uL (0-900); Neutrophils Absolute Auto 4300 /uL (1500-7000); Neutrophils Percent Auto 61.3 % (50-75); Platelet Count 250 X10^3/uL (150-400); Red Blood Cell Count 4.29 X10^6/uL (4.0-5.2); Red Cell Distribution Width 13.7 % (11.6-14.8)
[2024-08-06 13:27] LABS: Alanine Aminotransferase 27 IU/L (<35); Albumin 4.6 g/dL (3.5-5.0); Albumin Globulin Ratio 1.4 (1.0-2.8); Alkaline Phosphatase 66 U/L (38-126); Aspartate Aminotransferase 52 IU/L (14-36); BUN Creatinine Ratio 22.6 (6-22); Blood Urea Nitrogen 12 mg/dL (7-17); Calcium 9.4 mg/dL (8.4-10.2); Carbon Dioxide 23 mmol/L (22-32); Chloride 105 mmol/L (98-107); Estimated Glomerular Filt Rate > 60 mL/min (>60); Globulin 3.2 g/dL (1.7-4.1); Glucose 91 mg/dL (70-100); HEMOLYSIS 29 (0-50); Potassium 3.7 mmol/L (3.4-5.1); Sodium 137 mmol/L (137-145); Total Protein 7.8 g/dL (6.3-8.2)
--- NOTE | 2024-08-06 13:28 | DI.CT.S_ITS ---
PROCEDURE: CT HEAD/BRAIN WO CON INDICATIONS: hx MS, left weakness, new incontinence, sensation changes TECHNIQUE: Noncontrast 4.5 mm thick angled axial sections acquired from the foramen magnum to the vertex, with coronal and sagittal reformats. For radiation dose reduction, the following was used: automated exposure control, adjustment of mA and/or kV according to patient size. COMPARISON: [facility], CT, CT ANGIO HEAD AND NECK, 04/27/2022, 20:55. [facility], MR, MR HEAD/BRAIN WO/W CON, 04/28/2022, 8:17. FINDINGS: Image quality: Streak artifact can be seen through the skull base. CSF spaces: Basal cisterns are patent. No extra-axial fluid collections. Ventricles are normal in size and shape. Brain: No midline shift. No intracranial masses or hemorrhage. [place]-white matter interface is normal. Skull and face: Calvarium and visualized facial bones are intact, without suspicious lesions. Sinuses: Visualized sinuses and mastoids are clear. IMPRESSION: Noncontrast head CT within normal limits for age, without a cause of the patient's presenting symptoms identified. Dictated by: Jace Vides M.D. on 08/06/2024 at 12:56 Approved by: Jace Vides M.D. on 08/06/2024 at 12:59
--- NOTE | 2024-08-06 13:34 | PC.NURSE ---
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 She complains that her left side normally feels wet and her skin feels burned during a flare up and today it feels that way. However, her left leg was hard to raise due to painful burning sensation and but did have some ataxia as well in left leg.
[2024-08-06 14:25] LABS: Thyroid Stimulating Hormone 2.68 uIU/mL (0.47-4.68)
--- NOTE | 2024-08-06 16:45 | ED_ITS ---
HPI - Neuro Symptoms/Deficit <Ayaka Rivas, DO - Last Filed: 08/07/24 07:48> General Chief Complaint: Neuro Symptoms/Deficit Stated Complaint: ms exasperation Time Seen by Provider: 08/06/24 13:28 Source: patient, RN notes reviewed and old records reviewed Mode of arrival: Family Vehicle Limitations: no limitations History of Present Illness HPI Narrative: 39-year-old female history of relapsing and remitting MS, 1st diagnosed secondary to vision change. Patient states for the past 4 5 days has had pain particularly left side she describes as burning sensation particularly left leg off little bit of her left arm. She was noticed some or difficulty with patient we will movement of the left brow. She states she was also had urinary incontinence for the past 2 days. Patient states she was got in the burning sensation in the past she sometimes takes gabapentin usually helpful but has not been. She has been able to ambulate but painful it feels like hot cold on her heel. She does not appreciate much weakness in her extremities accept a little bit in her pinky finger on the left hand. She also notes it has been a little bit twitchy in her other fingers as well in the left hand when she fully extends them. Patient states no fevers, no chills, no chest pain or shortness of breath. No nausea or vomiting. No abdominal pain. No fecal incontinence. No issues with bowel movements. No dysuria, urgency sensation. Patient has not noticed any rash or skin changes. She has had steroids in the past but is not on any medications other than gabapentin as needed currently. Patient is former smoker, occasional alcohol, no recreational drugs. Has not had a major flare in 5 or 10 years. States last flare was about 3 years ago. Patient was following with Dr. Contreras from Neurology has not seen him for a couple years. Patient is accompanied by her son and his friend. On Anticoagulants: No Related Data Home Medications Medication Instructions Recorded Confirmed gabapentin 300 mg capsule 300 mg PO BID 09/25/21 04/28/22 Previous Rx's Medication Instructions Recorded diazepam 10 mg tablet (Valium) 10 mg PO TID PRN muscle spasm #14 03/05/21 tabs baclofen 5 mg tablet 5 mg PO TID PRN muscle spasm #30 01/19/23 tabs Allergies Allergy/AdvReac Type Severity Reaction Status Date / Time diclofenac Allergy Intermediate CHEST PAIN Verified 08/06/24 12:43 piroxicam Allergy Mild HIVES Verified 08/06/24 12:43 sumatriptan Allergy Unknown Verified 08/06/24 12:43 Review of Systems <Ayaka Rivas DO - Last Filed: 08/07/24 07:48> Review of Systems ROS Unobtainable: All systems reviewed & are unremarkable except as noted in HPI and below Hematologic/Lymphatic On Anticoagulants: No Patient History <Ayaka Rivas DO - Last Filed: 08/07/24 07:48> Medical History Multiple sclerosis Surgical History Status post dilation and curettage Status post appendectomy Family History Mother Epilepsy Diabetes mellitus Congestive heart failure Father Cancer Social History household members: spouse and children Smoking Status: Former smoker Smoking Status: Former smoker tobacco type: cigarettes alcohol intake frequency: holidays/special occasions only Exam <Ayaka Rivas DO - Last Filed: 08/07/24 07:48> Narrative Exam Narrative: GEN: well nourished, well appearing female, alert and oriented x 3, patient appears to be in mild distress. HEENT: Atraumatic, pupils are equal round reactive to light, extraocular movements are intact, nares are clear, TMs are clear with no fluid, there is no conjunctival pallor. Throat is clear without any exudates, erythema, tonsillar enlargement or uvular deviation, no droop of the lips but patient does have decreased movement of her left brow. No dysarthria or aphasia. HEART: Regular rate and rhythm without murmur, clicks, rubs. Pulses are equal in upper and lower extremities LUNGS:Lungs clear to auscultation, no wheezes, rales, crackles, chest moves symmetrically ABD:bowel sounds normal, soft, non-tender, no guarding, rebound, rigidity, no masses noted, no hepatosplenomegaly :No CVA tenderness. MSCL: Non-tender, no muscle atrophy, muscles strength 5/5 upper and lower extremities, mild drift in the left upper extremity, patient has a little bit of difficulty with left lower extremity. NEURO:CN 2-12 intact, patient states increased pain on the left lower extremity with touch, does note dullness on the left upper compared to the right as well as the left cheek, [id number] was normal. Patient is able to perform heel-pathak. Initial Vital Signs Initial Vital Signs: Vital Signs Temperature 98.0 F 08/06/24 12:34 Pulse Rate 92 H 08/06/24 12:34 Respiratory Rate 19 08/06/24 12:34 Blood Pressure 119/79 08/06/24 12:34 Pulse Oximetry 98 08/06/24 12:34 Oxygen Delivery Method Room Air 08/06/24 12:34 <Leopoldo Haynes DO - Last Filed: 08/06/24 22:42> Initial Vital Signs Initial Vital Signs: Vital Signs Temperature 98.0 F 08/06/24 12:34 Pulse Rate 92 H 08/06/24 12:34 Respiratory Rate 19 08/06/24 12:34 Blood Pressure 119/79 08/06/24 12:34 Pulse Oximetry 98 08/06/24 12:34 Oxygen Delivery Method Room Air 08/06/24 12:34 Course <Ayaka Rivas DO - Last Filed: 08/07/24 07:48> Orders Ordered: Discontinued Medications Sodium Chloride (Normal Saline 0.9%) 1,000 mls @ 1,000 mls/hr IV BOLUS ONE Stop: 08/06/24 23:37 Last Infusion: 08/07/24 00:10 Dose: Infused Documented By: Admin: 08/06/24 22:56 Dose: 1,000 mls/hr Documented By: ANTHONY Methylprednisolone (Methylprednisolone 125 Mg/2 Ml Vial) 1,000 mg IV NOW ONE Stop: 08/06/24 22:39 Last Admin: 08/06/24 22:56 Dose: 1,000 mg Documented By: ANTHONY Ondansetron HCl (Ondansetron 4 Mg/2 Ml Inj) 4 mg IV NOW PRN PRN Reason: Nausea And Vomiting Ondansetron HCl (Ondansetron 4 Mg Odt) 4 mg SL NOW PRN PRN Reason: Nausea And Vomiting Vital Signs Vital signs: Vital Signs - 8 hr 08/07/24 00:00 Pulse Rate 69 Pulse Oximetry 100 <Leopoldo Haynes DO - Last Filed: 08/06/24 22:42> Orders Ordered: Discontinued Medications Sodium Chloride (Normal Saline 0.9%) 1,000 mls @ 1,000 mls/hr IV BOLUS ONE Stop: 08/06/24 23:37 Last Infusion: 08/07/24 00:10 Dose: Infused Documented By: Admin: 08/06/24 22:56 Dose: 1,000 mls/hr Documented By: ANTHONY Methylprednisolone (Methylprednisolone 125 Mg/2 Ml Vial) 1,000 mg IV NOW ONE Stop: 08/06/24 22:39 Last Admin: 08/06/24 22:56 Dose: 1,000 mg Documented By: ANTHONY Ondansetron HCl (Ondansetron 4 Mg/2 Ml Inj) 4 mg IV NOW PRN PRN Reason: Nausea And Vomiting Ondansetron HCl (Ondansetron 4 Mg Odt) 4 mg SL NOW PRN PRN Reason: Nausea And Vomiting Vital Signs Vital signs: Vital Signs - 8 hr 08/07/24 00:00 Pulse Rate 69 Pulse Oximetry 100 MDM - Neuro Symptoms/Deficit <Ayaka Rivas DO - Last Filed: 08/07/24 07:48> Lab Data 08/06/24 12:57 08/06/24 12:57 Labs: Lab Results 08/06/24 Range/Units 12:57 WBC 7.0 (4.5-11.0) X10^3/uL RBC 4.29 (4.0-5.2) X10^6/uL Hgb 12.9 (12.0-16.0) g/dL Hct 37.5 (36-46) % MCV 87.4 (80-100) fL MCH 30.1 (26-34) PG MCHC 34.4 (30-36) % RDW 13.7 (11.6-14.8) % Plt Count 250 (150-400) X10^3/uL Neut % (Auto) 61.3 (50-75) % Lymph % (Auto) 27.6 (25-40) % [place] % (Auto) 7.0 (3-14) % Eos % (Auto) 3.5 (2-4) % Baso % (Auto) 0.6 (0-2) % Neut # (Auto) 4300 (3424-2546) /uL Lymph # (Auto) 1900 (0151-8439) /uL [place] # (Auto) 500 (0-900) /uL Eos # (Auto) 200 (0-450) /uL Baso # (Auto) 0 (0-100) /uL Sodium 137 (137-145) mmol/L Potassium 3.7 (3.4-5.1) mmol/L Chloride 105 (98-107) mmol/L Carbon Dioxide 23 (22-32) mmol/L BUN 12 (7-17) mg/dL Creatinine 0.53 (0.52-1.04) mg/dL Estimated GFR > 60 (>60) mL/min BUN/Creatinine Ratio 22.6 H (6-22) Glucose 91 (70-100) mg/dL Calcium 9.4 (8.4-10.2) mg/dL Magnesium 2.0 (1.6-2.3) mg/dL Total Bilirubin 1.0 (0.2-1.3) mg/dL AST 52 H (14-36) IU/L ALT 27 (<35) IU/L Alkaline Phosphatase 66 (38-126) U/L Total Protein 7.8 (6.3-8.2) g/dL Albumin 4.6 (3.5-5.0) g/dL Globulin 3.2 (1.7-4.1) g/dL Albumin/Globulin Ratio 1.4 (1.0-2.8) TSH 2.68 (0.47-4.68) uIU/mL Point of Care Testing Test Results Negative Urine Dip Bedside Urine Glucose Negative Bedside Urine Bilirubin - Negative Bedside Urine Ketone - Negative Urine Specific [place] 1.015 Bedside Urine Occult Blood - Negative Bedside Urine pH 6.0 Bedside Urine Protein - Negative Bedside Urine Urobilinogen - Negative Bedside Urine Nitrite - Negative Bedside Urine Leukocytes - Negative Esterase Imaging Data CT scan - head: Radiologist's Impression: Close Head CT (Signed) Jace Vides - 08/06/24 Telemetry Strips 04/27/22 Cervical Spine MRI (Signed) Call,[place] - 04/27/22 Brain MRI (Signed) Call,[place] - 04/27/22 Head/Neck CTA (Signed) Merritt Maharaj - 04/27/22 Chest X-Ray (Signed) Arturo Murray - 04/27/[address] (Signed) Henry Lombardi - 03/05/21 Shoulder X-Ray (Signed) Lindsay Romano - 04/08/19 Launch?[facility] [address] [address] [address] Scan Report Signed Patient: Velia Hannah MR#: [id number] : 1985 Acct:[id number] Age/Sex: 39 / F Date of Service: 08/06/24 Loc: ED Accession Number: [id number] Procedure: CT head/brain wo con Ordering Provider: Ayaka Rivas D.O. PROCEDURE: CT HEAD/BRAIN WO CON INDICATIONS: hx MS, left weakness, new incontinence, sensation changes TECHNIQUE: Noncontrast 4.5 mm thick angled axial sections acquired from the foramen magnum to the vertex, with coronal and sagittal reformats. For radiation dose reduction, the following was used: automated exposure control, adjustment of mA and/or kV according to patient size. COMPARISON: [facility], CT, CT ANGIO HEAD AND NECK, 04/27/2022, 20:55. [facility], MR, MR HEAD/BRAIN WO/W CON, 04/28/2022, 8:17. FINDINGS: Image quality: Streak artifact can be seen through the skull base. CSF spaces: Basal cisterns are patent. No extra-axial fluid collections. Ventricles are normal in size and shape. Brain: No midline shift. No intracranial masses or hemorrhage. [place]-white matter interface is normal. Skull and face: Calvarium and visualized facial bones are intact, without suspicious lesions. Sinuses: Visualized sinuses and mastoids are clear. IMPRESSION: Noncontrast head CT within normal limits for age, without a cause of the patient's presenting symptoms identified. Dictated by: Jace Vides M.D. on 08/06/2024 at 12:56 Approved by: Jace Vides M.D. on 08/06/2024 at 12:59 MDM Narrative Medical decision making narrative: 39-year-old female with a history of MS has not had a major flare in some time. Patient had labs, head CT, bladder scan to evaluate for any retention as she was had some incontinence. No infectious sources found suspect MS flare although stroke would be on differential. Patient is not a candidate for tPA or intervention as she is far outside the window of symptom onset it has been 4-5 days for her sensation changes and proximally 1-2 days for her incontinence. Lab shows normal CBC, electrolytes are appropriate glucose is 91 AST 52 otherwise normal LFTs TSH is 2.68. Point of care urine is negative. Negative . Head CT shows noncontrast CT Patient had bladder scan which shows 18 mL Patient has a little bit more left-sided symptoms but also has pain, has had 4 or 5 days if symptoms far outside the window for tPA she presents today because she would urinary incontinence over the past 24+ hours. Suspect this is more of MS flare. Some of her symptoms are consistent with her prior episodes particularly with a burning sensation. Will contact neurology for further recommendations. Paged neurology @ [phone] Contreras @ [phone]; recommends MR of brain and cervical spine with and without to rule out stroke or any other significant changes and 1 g of Solu-Medrol daily x3 days. Could be admission versus discharge with return for daily Solumedrol depending on findings. States would hold on the Solu-Medrol until after MR is performed. He was available for call and would like to be called if there was any significant abnormalities on MRI. Patient signed out to Dr. Haynes while awaiting MR to be performed. 1800 (Dr. Haynes): Received sign-out by morning provider, patient with a past medical history of multiple sclerosis currently not on any steroids, not followed up with her neurologist in awhile, patient presented for typical flare- up which included left-sided burning sensation to her left lower extremity twitching to her left upper extremity as well as partial left facial paralysis of the eyebrow. Patient follows with Dr. Contreras of neurology, he has been paged and patient's disposition pending recommendations. Patient's workup has otherwise been unremarkable here in the emergency department. 2235: Had a discussion with Dr. Contreras reviewed MRI findings which were consistent with patient's baseline no new lesions. States that patient is to have 1 g Solu-Medrol x3 days, no need for transfer admission no other recommendations just states patient should follow up at clinic. This was instructed to the patient she verbalized understanding of this <Leopoldo Haynes, DO - Last Filed: 08/06/24 22:42> Lab Data Labs: Lab Results 08/06/24 Range/Units 12:57 WBC 7.0 (4.5-11.0) X10^3/uL RBC 4.29 (4.0-5.2) X10^6/uL Hgb 12.9 (12.0-16.0) g/dL Hct 37.5 (36-46) % MCV 87.4 (80-100) fL MCH 30.1 (26-34) PG MCHC 34.4 (30-36) % RDW 13.7 (11.6-14.8) % Plt Count 250 (150-400) X10^3/uL Neut % (Auto) 61.3 (50-75) % Lymph % (Auto) 27.6 (25-40) % [place] % (Auto) 7.0 (3-14) % Eos % (Auto) 3.5 (2-4) % Baso % (Auto) 0.6 (0-2) % Neut # (Auto) 4300 (3365-4171) /uL Lymph # (Auto) 1900 (3567-1691) /uL [place] # (Auto) 500 (0-900) /uL Eos # (Auto) 200 (0-450) /uL Baso # (Auto) 0 (0-100) /uL Sodium 137 (137-145) mmol/L Potassium 3.7 (3.4-5.1) mmol/L Chloride 105 (98-107) mmol/L Carbon Dioxide 23 (22-32) mmol/L BUN 12 (7-17) mg/dL Creatinine 0.53 (0.52-1.04) mg/dL Estimated GFR > 60 (>60) mL/min BUN/Creatinine Ratio 22.6 H (6-22) Glucose 91 (70-100) mg/dL Calcium 9.4 (8.4-10.2) mg/dL Magnesium 2.0 (1.6-2.3) mg/dL Total Bilirubin 1.0 (0.2-1.3) mg/dL AST 52 H (14-36) IU/L ALT 27 (<35) IU/L Alkaline Phosphatase 66 (38-126) U/L Total Protein 7.8 (6.3-8.2) g/dL Albumin 4.6 (3.5-5.0) g/dL Globulin 3.2 (1.7-4.1) g/dL Albumin/Globulin Ratio 1.4 (1.0-2.8) TSH 2.68 (0.47-4.68) uIU/mL Point of Care Testing Test Results Negative Urine Dip Bedside Urine Glucose Negative Bedside Urine Bilirubin - Negative Bedside Urine Ketone - Negative Urine Specific [place] 1.015 Bedside Urine Occult Blood - Negative Bedside Urine pH 6.0 Bedside Urine Protein - Negative Bedside Urine Urobilinogen - Negative Bedside Urine Nitrite - Negative Bedside Urine Leukocytes - Negative Esterase MDM Narrative Medical decision making narrative: 39-year-old female with a history of MS has not had a major flare in some time. Patient had labs, head CT, bladder scan to evaluate for any retention as she was had some incontinence. No infectious sources found suspect MS flare although stroke would be on differential. Patient is not a candidate for tPA or intervention as she is far outside the window of symptom onset it has been 4-5 days for her sensation changes and proximally 1-2 days for her incontinence. Lab shows normal CBC, electrolytes are appropriate glucose is 91 AST 52 otherwise normal LFTs TSH is 2.68. Point of care urine is negative. Negative . Head CT shows noncontrast CT Patient had bladder scan which shows 18 mL Patient has a little bit more left-sided symptoms but also has pain, has had 4 or 5 days if symptoms far outside the window for tPA she presents today because she would urinary incontinence over the past 24+ hours. Suspect this is more of MS flare. Some of her symptoms are consistent with her prior episodes particularly with a burning sensation. Will contact neurology for further recommendations. Paged neurology @ [phone] Contreras @ [phone]; recommends MR of brain and cervical spine with and without to rule out stroke or any other significant changes and 1 g of Solu-Medrol daily x3 days. States would hold on the Solu-Medrol until after MR is performed. He was available for call and would like to be called if there was any significant abnormalities on MRI. 1800 (Dr. Haynes): Received sign-out by morning provider, patient with a past medical history of multiple sclerosis currently not on any steroids, not followed up with her neurologist in awhile, patient presented for typical flare- up which included left-sided burning sensation to her left lower extremity twitching to her left upper extremity as well as partial left facial paralysis of the eyebrow. Patient follows with Dr. Contreras of neurology, he has been paged and patient's disposition pending recommendations. Patient's workup has otherwise been unremarkable here in the emergency department. 2234: Had a discussion with Dr. Contreras reviewed MRI findings which were consistent with patient's baseline no new lesions. States that patient is to have 1 g Solu-Medrol x3 days, no need for transfer admission no other recommendations just states patient should follow up at clinic. This was instructed to the patient she verbalized understanding of this Discharge Plan Departure Patient Disposition: Home Clinical Impression: Multiple sclerosis exacerbation Activity Restrictions/Additional Instructions: Please return to the emergency department for the next 2 days to receive 1 g of Solu-Medrol Please follow up with your neurologist Please read the discharge instructions sheet carefully and bring all papers to all doctor follow-up visits, as it may contain information that your doctor may want to see. Disease processes change and evolve, if your symptoms worsen or if you develop any new symptoms that are concerning to you please return for evaluation. Your evaluation today does not show any evidence of any life- threatening/serious illnesses requiring admission to the hospital or surgery. Please follow-up with your doctor for re-evaluation in approximately 1 day. Seek immediate medical attention for any worrisome symptoms. *If you do not have a primary care provider please contact the [facility] Resource line at [phone]. They will ask some questions about your medical history and help get you set up with a doctor in the community. Prescriptions: No Action gabapentin 300 mg capsule 300 mg PO BID Rx Instructions: Discontinued baclofen 5 mg tablet 5 mg PO TID PRN (Reason: muscle spasm) Qty: 30 0RF Rx Instructions: May take up to 2 tablets three times a day as needed diazepam [Valium] 10 mg tablet 10 mg PO TID PRN (Reason: muscle spasm) Qty: 14 0RF Patient Comments: Discontinued Referrals: Miscellaneous,MD Puneet [Primary Care Provider] - Butch Contreras MD [Non-Staff] - 3-5 days Stand Alone Forms: Patient Portal/API/Survey
--- NOTE | 2024-08-06 18:45 | DI.MRI.S_ITS ---
PROCEDURE: MR HEAD/BRAIN WO/W CON INDICATIONS: L sided symptoms, burning, incontinence, hx of MS TECHNIQUE: Noncontrast sagittal and axial FLAIR, axial and coronal T2 fast spin echo, axial VIBE, axial gradient echo, axial diffusion and ADC through the brain. After the administration of contrast, axial and coronal and sagittal VIBE with fat saturation through the brain. COMPARISON: [facility], , MR HEAD/BRAIN WO/W CON, 04/28/2022, 8:17. FINDINGS: Image quality: Excellent. CSF spaces: Ventricles are normal in size and shape. Basal cisterns are patent. No extra-axial fluid collections. Brain: There are a few small foci of T2/FLAIR hyperintense signal within the supratentorial white matter which are similar appearance compared to prior exam. No intracranial bleeds or mass effects. [place]-white matter interface appears intact. No abnormal intracranial enhancement. Diffusion weighted images show no acute ischemic insults. Brainstem appears normal. Normal intravascular flow voids are present. Skull and face: Calvarial marrow signal is normal. Orbits appear normal. Sinuses: Minimal diffuse paranasal sinus mucosal thickening. The mastoids are clear. IMPRESSION: Redemonstration of a few small foci of T2/FLAIR hyperintense signal within the supratentorial white matter, similar in appearance to prior. No new or enhancing lesions are identified. No acute or subacute infarct. No abnormal intracranial enhancement. Dictated by: Delbert Wan M.D. on 08/06/2024 at 21:13 Approved by: Delbert Wan M.D. on 08/06/2024 at 21:18
--- NOTE | 2024-08-06 18:45 | DI.MRI.S_ITS ---
PROCEDURE: MR CERVICAL SPINE WO/W CON INDICATIONS: L sided symptoms, burning, incontinence, hx of MS TECHNIQUE: Noncontrast sagittal T1 spin echo and T2 fast spin echo, sagittal STIR, sagittal PD fast spin echo, foraminal oblique sagittal T2 fast spin echo, axial gradient echo or T2 fast spin echo through the cervical spine. After the administration of contrast, sagittal and axial T1 spin echo with fat saturation through the cervical spine. COMPARISON: [facility], MR, MR CERVICAL SPINE WO/W CON, 04/28/2022, 8:17. FINDINGS: Image quality: Excellent. Alignment and curvature: There is normal bony alignment. Marrow: Marrow demonstrates normal overall signal. Spinal cord: Visualized spinal cord is normal in size, without white matter lesions. No suspicious intramedullary enhancement. No cerebellar tonsillar herniation. Paraspinous soft tissues: Again seen right inframandibular possibly cystic structure measuring up to approximately 3.5 cm. No definite enhancement is appreciated. C2-C3: Normal appearance. C3-C4: Normal appearance. C4-C5: Normal appearance. C5-C6: Normal appearance. C6-C7: Normal appearance. C7-T1: Normal appearance. IMPRESSION: The cervical cord is normal in size and signal intensity. No suspicious lesions or enhancement. Right inframandibular possibly cystic structure measuring 3.5 cm without definite enhancement is similar compared to prior. Dictated by: Delbert Wan M.D. on 08/06/2024 at 21:19 Approved by: Delbert Wan M.D. on 08/06/2024 at 21:26
--- NOTE | 2024-08-06 19:21 | PC.NURSE ---
Pt awake and alert sitting in ED stretcher speaking with son and sons friend. No distress noted at this time. Pt aware of current plan of care and pending MRI study. Pt in hospital gown with all clothing and jewelry removed. Pt remiains connected to cardiac, resp, blood pressure, and pulse ox monitors with alarms on and audible. Call light within reach.
--- NOTE | 2024-08-06 20:05 | PC.NURSE ---
Pt ambulatory to imaging with telecommunications field technician
--- NOTE | 2024-08-06 22:35 | PC.NURSE ---
Pt awake and alert in no obvious distress with no complaints other than original c/o pain at this time. Repositioned and blood pressure taken x [address] Haynes made aware and currently at bedside.
[2024-08-06] MEDS: methylPREDNISolone 125 MG/2 ML VIAL 1000 MG IV (22:56)
[2024-08-06] MEDS: SODIUM CHLORIDE 0.9% 1,000 ML 1000 ML IV (22:56)
[2024-08-07] VITALS: PULSE 69; O2SAT 100
== END 2024-08-07 00:18 | disposition home or self-care (01) ==
PROVIDERS: Emergency Medicine; Emergency Provider Student in an Organized Health Care Education/Training Program; Family Provider Obstetrics & Gynecology
DX: G35 Multiple sclerosis (principal); Z87.891 Personal history of nicotine dependence; R32 Unspecified urinary incontinence
CPT/HCPCS: 36415; 51798; 70450; 70553; 72156; 80053; 81003; 81025; 83735; 84443; 85025; 96361; 96374; 99285; A9579; J2919

== ENCOUNTER 2024-08-07 12:01 | Emergency (ER) | payer OTHER, SELFPAY ==
[2022-04-27 23:44] VITALS: BMI 21.1
[2024-08-07 12:18] VITALS: BP 109/63; PULSE 98; RESP 18; TEMP 36.9; O2SAT 99; BMI 21.9
--- NOTE | 2024-08-07 12:26 | ED_ITS ---
HPI - Recheck/Abnormal Lab/Rx <Brittney Chao PA-C - Last Filed: 08/07/24 19:46> General Chief Complaint: Recheck/Abnormal Lab/Rx Stated Complaint: Walk-in -solu-medrol infusion Time Seen by Provider: 08/07/24 12:03 Source: patient Mode of arrival: Family Vehicle History of Present Illness HPI narrative: This is a 39-year-old woman with a history of relapsing remitting MS. Patient is here today for 2nd day of infusion of Solu-Medrol after she was seen yesterday in the emergency department where she had CT, MRI and her neurologist was consulted. Patient states that she had been having symptoms of incontinence and left-sided burning sensation in her leg as well as inability to move her left eyebrow normally. She states that she was still having some incontinence until yesterday night but was able to sleep through the night without difficulty and says that this morning she felt a sensation of bladder fullness and urgency as she typically would and has not had any incontinence ongoing. She states that her overall symptoms have felt consistent with previous MS flares. And she has improved some since Solu-Medrol. She has been in touch with her neurologist office and was advised to call today to get scheduled for an appointment. She currently takes gabapentin for pain often uses this intermittently when symptoms are flaring. She has not on any other medications. History of MS for 10 years. She denies vision change, does endorse a mild headache but states this feels consistent with Solu-Medrol use. Denies one-sided weakness, worsening left- sided pain numbness or tingling or any other symptoms. Related Data Home Medications Medication Instructions Recorded Confirmed gabapentin 300 mg capsule 300 mg PO BID 09/25/21 04/28/22 Previous Rx's Medication Instructions Recorded diazepam 10 mg tablet (Valium) 10 mg PO TID PRN muscle spasm #14 03/05/21 tabs baclofen 5 mg tablet 5 mg PO TID PRN muscle spasm #30 01/19/23 tabs Allergies Allergy/AdvReac Type Severity Reaction Status Date / Time diclofenac Allergy Intermediate CHEST PAIN Verified 08/06/24 12:43 piroxicam Allergy Mild HIVES Verified 08/06/24 12:43 sumatriptan Allergy Unknown Verified 08/06/24 12:43 Review of Systems <Brittney Chao PA-C - Last Filed: 08/07/24 19:46> Review of Systems Narrative: See HPI Patient History <Brittney Chao PA-C - Last Filed: 08/07/24 19:46> Medical History Multiple sclerosis Surgical History Status post dilation and curettage Status post appendectomy Family History Mother Epilepsy Diabetes mellitus Congestive heart failure Father Cancer Social History household members: spouse and children Smoking Status: Former smoker Smoking Status: Former smoker tobacco type: cigarettes alcohol intake frequency: holidays/special occasions only Exam <Brittney Chao PA-C - Last Filed: 08/07/24 19:46> Narrative Exam Narrative: GENERAL: [39] year old patient appears stated age. Well-developed patient, in mild distress. Well-appearing. HEAD: Atraumatic. Normocephalic. EYES: Pupils equal round and reactive. Extraocular motions intact. No scleral icterus. No injection or drainage. ENT: Nose without bleeding, purulent drainage. Airway patent. NECK: Trachea midline. CARDIOVASCULAR: Regular rate and rhythm without murmurs, gallops, or rubs. RESPIRATORY: Clear to auscultation. Breath sounds equal bilaterally. No wheezes, rales, or rhonchi. GASTROINTESTINAL: Abdomen nondistended. EXTREMITIES: Hypersensitive to touch at left foot dorsum base of 1st/2nd phalanx (baseline per pt). Sensation to light touch intact/equal in LEs. Sensation to light touch slightly dulled LUE. No edema or joint tenderness. BACK: Nontender without deformity or crepitance. No flank tenderness. NEURO: See extremities. Patient has no obvious facial droop. AOx3. CN II-XII intact with exception of CN V and VII affected. There is slight reduced sensation of the left face to light touch as compared to R and Left eyebrow can raise but is not uniform/lateral aspect does not raise completely. SKIN: No rash or erythema of visible areas Initial Vital Signs Initial Vital Signs: Vital Signs Temperature 98.4 F 08/07/24 12:18 Pulse Rate 98 H 08/07/24 12:18 Respiratory Rate 18 08/07/24 12:18 Blood Pressure 109/63 08/07/24 12:18 Pulse Oximetry 99 08/07/24 12:18 Oxygen Delivery Method Room Air 08/07/24 12:18 <Ayaka Rivas DO - Last Filed: 08/11/24 18:18> Initial Vital Signs Initial Vital Signs: Vital Signs Temperature 98.4 F 08/07/24 12:18 Pulse Rate 98 H 08/07/24 12:18 Respiratory Rate 18 08/07/24 12:18 Blood Pressure 109/63 08/07/24 12:18 Pulse Oximetry 99 08/07/24 12:18 Oxygen Delivery Method Room Air 08/07/24 12:18 Course <Brittney Chao PA-C - Last Filed: 08/07/24 19:46> Orders Ordered: Discontinued Medications Methylprednisolone 1,000 mg/ (Sodium Chloride) 250 mls @ 250 mls/hr IV NOW ONE Stop: 08/07/24 12:04 Last Infusion: 08/07/24 14:23 Dose: Infused Documented By: Admin: 08/07/24 12:34 Dose: 167 mls/hr Documented By: SANTOSH Vital Signs Vital signs: Vital Signs - 8 hr 08/07/24 12:18 08/07/24 14:24 Temperature 98.4 F Pulse Rate 98 H 94 H Respiratory Rate 18 18 Blood Pressure 109/63 103/63 Pulse Oximetry 99 99 Oxygen Delivery Method Room Air Room Air <Ayaka Rivas DO - Last Filed: 08/11/24 18:18> Orders Ordered: Discontinued Medications Methylprednisolone 1,000 mg/ (Sodium Chloride) 250 mls @ 250 mls/hr IV NOW ONE Stop: 08/07/24 12:04 Last Infusion: 08/07/24 14:23 Dose: Infused Documented By: Admin: 08/07/24 12:34 Dose: 167 mls/hr Documented By: SANTOSH Vital Signs Vital signs: Vital Signs - 8 hr 08/07/24 12:18 08/07/24 14:24 Temperature 98.4 F Pulse Rate 98 H 94 H Respiratory Rate 18 18 Blood Pressure 109/63 103/63 Pulse Oximetry 99 99 Oxygen Delivery Method Room Air Room Air MDM - Recheck/Abnormal Lab/Rx <Brittney Chao PA-C - Last Filed: 08/07/24 19:46> Differential Diagnosis Differential diagnosis: Likely other (Encounter for IV infusion medication administration, MS flare) Medical Records Attestation: I reviewed the patient's medical records. Lab Data Lab results narrative: I reviewed the patient's labs from her visit yesterday in the emergency department. [facility] Narrative Medical decision making narrative: This is a 39-year-old woman with a history of relapsing remitting MS who was seen yesterday in this emergency department and had labs, CT as well as MRI showing no change to her known lesions her neurologist Dr. Contreras was consulted and he advised 1 g Solu-Medrol daily for 3 days. Patient received this yesterday in the emergency department. And states that overall her symptoms have improved slightly since she left the ER. She came in today for her 2nd infusion per his orders. She is working on getting scheduled to see him in clinic as she has not seen him in over 2 years. Patient endorsed improvement of her incontinence symptoms was able to sleep through the night without incontinence to urine and has had an improvement of her left-sided burning pain now feeling slightly more like an ache. Her cranial nerve exam also improved today as compared to yesterday with better movement of the left eyebrow and improvement of sensation equal bilaterally in upper extremities. She received 1 g IV Solu-Medrol. Reviewed her chart including labs and imaging from her visit yesterday in the emergency department. Additional labs and imaging not obtained today. Patient will return tomorrow for her 3rd and final dose of Solu-Medrol and follow up closely with her neurologist. Return precautions provided, follow-up plan discussed, all questions answered. Discharge Plan Departure Patient Disposition: Home Clinical Impression: Multiple sclerosis exacerbation, Encounter for medication administration Activity Restrictions/Additional Instructions: *You have been diagnosed with [MS flare, need for medication administration] *What to do: *Please continue to take your regular medications as directed. [ ] New medication prescriptions sent to your pharmacy: [ ] [ ] New medication written as a paper prescription [ ] No new medications given *Please follow up with your primary care provider in 2-3 days, call for an appointment. Let them know you were seen in the Emergency Department and that we ask that you be seen in follow up. We will electronically transmit a record of today's note if your PCP is in our system. You came in today needing your 2nd Solu-Medrol infusion as recommended by your neurologist who was consulted from the ER yesterday when you were seen for MS flare. We gave you your Solu-Medrol IV today which you handled fine. Please come back tomorrow for your 3rd Solu- Medrol infusion. Please follow up closely Friday by phone and make sure to get scheduled with your neurologist Dr. Contreras as soon as possible. We also discussed your gabapentin. As this is not something you have been taking consistently but you want to restart it. Since he took 200 mg yesterday and felt fine with that go ahead and take 300 tonight. You can take 300 tomorrow morning and 300 tomorrow evening if this is all feeling fine it is okay to return to your previous dose of 600 mg at night the next day. I also recommend running this by Dr. Contreras or his nursing staff on Friday when you talk. I hope you feel better soon. *If you do not have a primary care provider please contact the [facility] Resource line at [phone]. They will ask some questions about your medical history and help get you set up with a doctor in the community. *Return to Emergency Department if you should have any new, worsening or concerning symptoms, such as [fever greater than 101 F, shaking chills, worsening pain, persistent vomiting or other bothersome symptoms] Prescriptions: No Action gabapentin 300 mg capsule 300 mg PO BID Rx Instructions: Discontinued baclofen 5 mg tablet 5 mg PO TID PRN (Reason: muscle spasm) Qty: 30 0RF Rx Instructions: May take up to 2 tablets three times a day as needed diazepam [Valium] 10 mg tablet 10 mg PO TID PRN (Reason: muscle spasm) Qty: 14 0RF Patient Comments: Discontinued Referrals: Miscellaneous,Doctor, MD [Primary Care Provider] - Stand Alone Forms: Patient Portal/API/Survey ED Sign-out <Ayaka Rivas DO - Last Filed: 08/11/24 18:18> Cosign ED Attending Sadaf Attestation: I was immediately available in the department for consultation.
[2024-08-07] MEDS: methylPREDNISolone 1,000 MG in SODIUM CHLORIDE 0.9% 250 ML 167 MG IV (12:34)
[2024-08-07 14:24] VITALS: BP 103/63; PULSE 94; RESP 18; O2SAT 99
--- NOTE | 2024-08-07 14:45 | PC.NURSE ---
patient has R FA #[address], patent, intact, asymptomatic; Saline locked +BR +Flush. placed 08/07/24 SAT @ ER for solumedrol infusion. Leaving PIV in place, secured with dsg, return precautions reviewed - patient is coming back to ER here tomorrow 08/08/24 SUN for 3rd Solumedrol infuson.
== END 2024-08-07 14:45 | disposition home or self-care (01) ==
PROVIDERS: Emergency Provider Student in an Organized Health Care Education/Training Program; Family Provider Obstetrics & Gynecology
DX: G35 Multiple sclerosis (principal)
CPT/HCPCS: 96365; 96366; 99283; 99284; J2919

== ENCOUNTER 2024-08-08 12:24 | Emergency (ER) | payer OTHER, SELFPAY ==
[2022-04-27 23:44] VITALS: BMI 21.1
[2024-08-08 12:43] VITALS: BP 106/71; PULSE 71; RESP 16; TEMP 36.9; O2SAT 97; BMI 21.9
--- NOTE | 2024-08-08 14:26 | ED_ITS ---
HPI - Recheck/Abnormal Lab/Rx <Beverly Gaston PA-C - Last Filed: 08/08/24 19:02> General Chief Complaint: Recheck/Abnormal Lab/Rx Stated Complaint: Solu-medrol infusion Time Seen by Provider: 08/08/24 14:21 Source: patient Mode of arrival: Ambulatory History of Present Illness HPI narrative: Ms. Hannah is a pleasant 39-year-old female with a past medical history of relapsing and remitting multiple sclerosis who presents to the emergency department for her 3rd and final Solu-Medrol infusion for a MS flare. Patient was 1st seen in the emergency department on 08/06/24 for some left-sided paresthesias and bladder incontinence. She had an extensive workup performed including CT, MRI, and consultation with her neurologist Dr. Contreras. Her symptoms were attributed to an MS flare and he recommended 1000 mg of Solu- Medrol x3 days. Patient received her 2nd dose yesterday and is here for her 3rd and final dose today. She reports she is feeling much improved and says that she actually is better than her baseline. She has no facial asymmetry and reports she only has very minimal decreased sensation on the left jaw but overall feels better. No pain or concerns at this time. She is also taking gabapentin 300 mg in the morning and at night. She has plans to call her neurologist tomorrow for a follow up appointment. She denies any new or worsening symptoms. Related Data Home Medications Medication Instructions Recorded Confirmed gabapentin 300 mg capsule 300 mg PO BID 09/25/21 04/28/22 Previous Rx's Medication Instructions Recorded diazepam 10 mg tablet (Valium) 10 mg PO TID PRN muscle spasm #14 03/05/21 tabs baclofen 5 mg tablet 5 mg PO TID PRN muscle spasm #30 01/19/23 tabs Allergies Allergy/AdvReac Type Severity Reaction Status Date / Time diclofenac Allergy Intermediate CHEST PAIN Verified 08/06/24 12:43 piroxicam Allergy Mild HIVES Verified 08/06/24 12:43 sumatriptan Allergy Unknown Verified 08/06/24 12:43 Review of Systems <Beverly Gaston PA-C - Last Filed: 08/08/24 19:02> Review of Systems ROS Unobtainable: All systems reviewed & are unremarkable except as noted in HPI and below Patient History <Beverly Gaston PA-C - Last Filed: 08/08/24 19:02> Medical History Multiple sclerosis Surgical History Status post dilation and curettage Status post appendectomy Family History Mother Epilepsy Diabetes mellitus Congestive heart failure Father Cancer Social History household members: spouse and children Smoking Status: Former smoker Smoking Status: Former smoker tobacco type: cigarettes alcohol intake frequency: holidays/special occasions only Exam <Beverly Gaston PA-C - Last Filed: 08/08/24 19:02> Narrative Exam Narrative: GENERAL: 39 year old patient appears stated age. Well-developed patient, in no acute distress. HEAD: Atraumatic. Normocephalic. EYES: PERRL. Extraocular motions intact. No scleral icterus. No injection or drainage. ENT: Nose without bleeding, purulent drainage. Throat without erythema, tonsillar hypertrophy or exudate. Airway patent. NECK: Trachea midline. Cervical ROM intact. CARDIOVASCULAR: Regular rate and rhythm. RESPIRATORY: ?Nonlabored respirations. ?Speaking in clear, full sentences. ?Clear to auscultation. Breath sounds equal bilaterally. No wheezes, rales, or rhonchi. ? NEURO: AOx3. ?Clear speech. ?Moves all 4 extremities appropriately. No facial asymmetry. Sensation intact to light touch throughout the face and the upper and lower extremities, reports somewhat decreased sensation on left lower jaw. Normal gait. SKIN: No rash or erythema of visible areas Initial Vital Signs Initial Vital Signs: Vital Signs Temperature 98.4 F 08/08/24 12:43 Pulse Rate 71 08/08/24 12:43 Respiratory Rate 16 08/08/24 12:43 Blood Pressure 106/71 08/08/24 12:43 Pulse Oximetry 97 08/08/24 12:43 Oxygen Delivery Method Room Air 08/08/24 12:43 <Magdaleno Anderson MD - Last Filed: 08/08/24 21:26> Initial Vital Signs Initial Vital Signs: Vital Signs Temperature 98.4 F 08/08/24 12:43 Pulse Rate 71 08/08/24 12:43 Respiratory Rate 16 08/08/24 12:43 Blood Pressure 106/71 08/08/24 12:43 Pulse Oximetry 97 08/08/24 12:43 Oxygen Delivery Method Room Air 08/08/24 12:43 Course <Beverly Gaston PA-C - Last Filed: 08/08/24 19:02> Orders Ordered: Discontinued Medications Methylprednisolone 1,000 mg/ (Sodium Chloride) 250 mls @ 250 mls/hr IV NOW ONE Stop: 08/08/24 14:27 Last Infusion: 08/08/24 16:06 Dose: Infused Documented By: Admin: 08/08/24 14:45 Dose: 250 mls/hr Documented By: Vital Signs Vital signs: Vital Signs - 8 hr 08/08/24 14:50 08/08/24 16:21 Temperature 98 F Pulse Rate 76 76 Respiratory Rate 16 16 Blood Pressure 111/74 107/68 Pulse Oximetry 97 98 Oxygen Delivery Method Room Air <Magdaleno Anderson MD - Last Filed: 08/08/24 21:26> Orders Ordered: Discontinued Medications Methylprednisolone 1,000 mg/ (Sodium Chloride) 250 mls @ 250 mls/hr IV NOW ONE Stop: 08/08/24 14:27 Last Infusion: 08/08/24 16:06 Dose: Infused Documented By: Admin: 08/08/24 14:45 Dose: 250 mls/hr Documented By: Vital Signs Vital signs: Vital Signs - 8 hr 08/08/24 14:50 08/08/24 16:21 Temperature 98 F Pulse Rate 76 76 Respiratory Rate 16 16 Blood Pressure 111/74 107/68 Pulse Oximetry 97 98 Oxygen Delivery Method Room Air MDM - Recheck/Abnormal Lab/Rx <Beverly Gaston PA-C - Last Filed: 08/08/24 19:02> Medical Records Attestation: I reviewed the patient's medical records. MDM Narrative Medical decision making narrative: 39-year-old female with a past medical history of relapsing and remitting multiple sclerosis who presents to the emergency department for her 3rd and final Solu-Medrol infusion for a MS flare. Differential diagnosis includes but is not limited to encounter for medication administration, multiple sclerosis exacerbation, etc. On exam patient is in no acute distress, nontoxic appearing, vital signs within normal limits, no focal neurologic deficits except for slightly reported decreased sensation on left lower jaw. There is no facial asymmetry or weakness. She states that she is feeling much better, even better than she normally feels. I extensively reviewed her prior ED visits on 08/06/2024 and 08/07/2024. Patient had an extensive neurologic workup including CT and MRI imaging on 08/06/2024, neurologist Dr. Bowman was consulted and recommended Solu- Medrol infusion 1 g x 3 days. She has had continuing improvement in her symptoms with this management. No indication for additional lab work or imaging at this time. We will provide patient with 3rd and final dose of 1000 mg IV Solu-Medrol, IV is in place and secured from yesterday in the right upper extremity. Advised patient follow up promptly with her neurologist, return to ED for any new or concerning symptoms. She verbalized understanding of all information and is agreeable to the plan. Patient feels well after infusion, VS WNL, ED return precautions discussed, stable for discharge home. Discharge Plan Departure Patient Disposition: Home Clinical Impression: Encounter for medication administration Instructions: DI for Multiple Sclerosis Exacerbations Activity Restrictions/Additional Instructions: Dear Gabbie Hannah, Thank you for coming to the emergency department today. Today you received your 3rd and final infusion of 1000 mg of Solu-Medrol. Please call to schedule an appointment for follow up with your neurologist as soon as possible. Please follow up with your primary care doctor within the next 2-3 days for ER follow-up. (If you do not have a PCP you can call [phone]. ?to schedule an appointment with an [facility] Primary Care Provider) IF YOU DEVELOP ANY NEW OR WORSENING SYMPTOMS, RETURN TO THE ER! Please read the attached instructions, they highlight more specific treatments and interventions for you at home. Thank you for letting me participate in your care, Beverly Gaston PA-C Prescriptions: No Action gabapentin 300 mg capsule 300 mg PO BID Rx Instructions: Discontinued baclofen 5 mg tablet 5 mg PO TID PRN (Reason: muscle spasm) Qty: 30 0RF Rx Instructions: May take up to 2 tablets three times a day as needed diazepam [Valium] 10 mg tablet 10 mg PO TID PRN (Reason: muscle spasm) Qty: 14 0RF Patient Comments: Discontinued Referrals: Miscellaneous,Doctor, [Primary Care Provider] - Stand Alone Forms: Patient Portal/API/Survey ED Sign-out <Magdaleno Anderson MD - Last Filed: 08/08/24 21:26> Cosign ED Attending Cosignature Attestation: I was immediately available in the department for consultation. This documentation has been reviewed and I agree with assessment and plan. Supervised by Magdaleno Anderson MD
[2024-08-08] MEDS: methylPREDNISolone 1,000 MG in SODIUM CHLORIDE 0.9% 250 ML 250 MG IV (14:45)
[2024-08-08 14:50] VITALS: BP 111/74; PULSE 76; RESP 16; O2SAT 97
[2024-08-08 16:21] VITALS: BP 107/68; PULSE 76; RESP 16; TEMP 36.6; O2SAT 98
== END 2024-08-08 17:16 | disposition home or self-care (01) ==
PROVIDERS: Emergency Provider Physician Assistant; Family Provider Obstetrics & Gynecology
DX: G35 Multiple sclerosis (principal); Z87.891 Personal history of nicotine dependence
CPT/HCPCS: 96365; 99283; 99284; J2919

== ENCOUNTER 2025-06-19 00:41 | Emergency (ER) | payer OTHER, SELFPAY ==
[2022-04-27 23:44] VITALS: BMI 21.1
[2025-06-19] VITALS (10 sets, daily range): BP systolic 98–122; BP diastolic 60–71; PULSE 70–97; RESP 18–22; TEMP 36.6; O2SAT 97–100; BMI 22.4
--- NOTE | 2025-06-19 00:55 | DI.RAD.S_ITS ---
PROCEDURE: XR CHEST 2V INDICATIONS: shortness of breath TECHNIQUE: 2 views of the chest were acquired. COMPARISON: [facility], , XR CHEST 1V, 04/27/2022, 18:40. FINDINGS: Surgical changes and devices: None. Lungs and pleura: Lungs are clear. No pleural effusions or pneumothorax. Mediastinum: Mediastinal contours are normal. Heart size is normal. Bones and chest wall: No suspicious bony abnormalities. Soft tissues appear unremarkable. IMPRESSION: Clear lungs. Dictated by: Jace Vides M.D. on 06/19/2025 at 0:12 Approved by: Jace Vides M.D. on 06/19/2025 at 0:13
--- NOTE | 2025-06-19 01:22 | ED.SOB ---
HPI - SOB/Dyspnea General Chief Complaint: Shortness of Breath/Dyspnea Stated Complaint: SOB Time Seen by Provider: 06/19/25 00:47 History of Present Illness HPI Narrative: 39-year-old female with no pulmonary history presents with off and on cough and cold-like symptoms for the past month and today felt a little bit more short of breath. She denies any other symptoms. Related Data Home Medications ?Medication ?Instructions ?Recorded ?Confirmed gabapentin 300 mg capsule 300 mg PO BID 09/25/21 04/28/22 Previous Rx's ?Medication ?Instructions ?Recorded diazepam 10 mg tablet (Valium) 10 mg PO TID PRN muscle spasm #14 03/05/21 tabs baclofen 5 mg tablet 5 mg PO TID PRN muscle spasm #30 01/19/23 tabs azithromycin 250 mg tablet 250 mg PO DAILY 4 days #4 tabs 06/19/25 potassium chloride 10 mEq 10 meq PO DAILY #3 caps 06/19/25 capsule,extended release Allergies Allergy/AdvReac Type Severity Reaction Status Date / Time diclofenac Allergy Intermediate CHEST PAIN Verified 08/06/24 12:43 piroxicam Allergy Mild HIVES Verified 08/06/24 12:43 sumatriptan Allergy Unknown Verified 08/06/24 12:43 Review of Systems Review of Systems ROS Unobtainable: All systems reviewed & are unremarkable except as noted in HPI and below Patient History Medical History Multiple sclerosis Surgical History Status post dilation and curettage Status post appendectomy Family History Mother Epilepsy Diabetes mellitus Congestive heart failure Father Cancer Social History household members: spouse and children tobacco type: cigarettes alcohol intake frequency: holidays/special occasions only Exam Narrative Exam Narrative: General: Patient appears to be in no acute distress, acting appropriately Head: normocephalic, atraumatic, HEENT: Pupils equal round reactive, eyes tracking well, neck supple, no JVD Heart: regular rate and rhythm, no murmurs, rubs, or gallops heard Lungs: clear to auscultation, no adventitious sounds Abdomen: soft , nontender, nondistended, positive bowel sounds Neurological: no focal neurological signs, moving all extremities well, alert and oriented x3, Psych: good judgment ,good insight, mood is normal. Initial Vital Signs Initial Vital Signs: Vital Signs Temperature 97.8 F 06/19/25 00:50 Pulse Rate 70 06/19/25 00:50 Respiratory Rate 22 06/19/25 00:50 Blood Pressure 121/71 06/19/25 00:50 Pulse Oximetry 99 06/19/25 00:50 Oxygen Delivery Method Room Air 06/19/25 00:50 Course Orders Ordered: ED Orders 06/19/25 00:55 Chest [XR chest 2V] Stat Covid-19 + FLU A/B + RSV - PCR Stat 06/19/25 03:20 Strep Grp A by PCR Rapid Stat 06/19/25 03:30 CBC Auto Diff [Complete Blood Count AUTO DIFF] Stat CMP [Comprehensive Metabolic Panel] Stat D Dimer Stat Monotest Stat Procalcitonin Stat Troponin I Stat Discontinued Medications Albuterol/Ipratropium (Albuterol/Ipratropium 3 Ml Ampul) 3 ml INH NOW ONE Stop: 06/19/25 01:22 Last Admin: 06/19/25 01:29 Dose: 3 ml Azithromycin (Azithromycin 250 Mg Tablet) 500 mg PO NOW ONE Stop: 06/19/25 04:10 Last Admin: 06/19/25 04:25 Dose: 500 mg Potassium Chloride (Potassium Chloride 20 Meq/15 Ml Udc) 40 meq PO NOW ONE Stop: 06/19/25 04:04 Last Admin: 06/19/25 04:18 Dose: 40 meq Vital Signs Vital signs: Vital Signs - 8 hr 06/19/25 00:50 06/19/25 01:35 Temperature 97.8 F Pulse Rate 70 95 H Respiratory Rate 22 18 Blood Pressure 121/71 Pulse Oximetry 99 100 Oxygen Delivery Method Room Air MDM - SOB/Dyspnea Lab Data 06/19/25 03:30 06/19/25 03:30 Labs: Lab Results 06/19/25 06/19/25 06/19/25 Range/Units 00:55 03:20 03:30 WBC 8.2 (4.5-11.0) X10^3/uL RBC 4.04 (4.0-5.2) X10^6/uL Hgb 11.9 L (12.0-16.0) g/dL Hct 34.7 L (36-46) % MCV 86.0 (80-100) fL MCH 29.4 (26-34) PG MCHC 34.2 (30-36) % RDW 13.4 (11.6-14.8) % Plt Count 214 (150-400) X10^3/uL Neut % (Auto) 67.4 (50-75) % Lymph % (Auto) 21.8 L (25-40) % [place] % (Auto) 7.1 (3-14) % Eos % (Auto) 3.0 (2-4) % Baso % (Auto) 0.7 (0-2) % Neut # (Auto) 5500 (7537-9273) /uL Lymph # (Auto) 1800 (4880-7488) /uL [place] # (Auto) 600 (0-900) /uL Eos # (Auto) 200 (0-450) /uL Baso # (Auto) 100 (0-100) /uL D-Dimer 263 (<500) ng/ml Sodium 143 (137-145) mmol/L Potassium 2.8 L (3.4-5.1) mmol/L Chloride 107 (98-107) mmol/L Carbon Dioxide 25 (22-32) mmol/L BUN 10 (7-17) mg/dL Creatinine 0.53 (0.52-1.04) mg/dL Estimated GFR > 60 (>60) mL/min BUN/Creatinine Ratio 18.9 (6-22) Glucose 111 H (70-99) mg/dL Calcium 9.2 (8.4-10.2) mg/dL Total Bilirubin 0.4 (0.2-1.3) mg/dL AST 28 (14-36) IU/L ALT 36 H (<35) IU/L Alkaline Phosphatase 79 (38-126) U/L Troponin I < 0.012 (0.01-0.034) ng/mL Total Protein 7.5 (6.3-8.2) g/dL Albumin 4.4 (3.5-5.0) g/dL Globulin 3.1 (1.7-4.1) g/dL Albumin/Globulin Ratio 1.4 (1.0-2.8) Procalcitonin 0.043 (<0.5) ng/mL SARS-CoV-2 (PCR) Negative (Negative) Monoscreen Negative (Negative) Influenza A (RT-PCR) Flu a negative (NEGATIVE) Influenza B (RT-PCR) Flu b negative (NEGATIVE) RSV (PCR) Negative (Negative) Group A Strep (PCR) Negative (Negative) Imaging Data Chest x-ray: Radiologist's Impression: Clear lungs. MDM Narrative Medical decision making narrative: 39-year-old female with a history of multiple sclerosis but no pulmonary history presents with off and on cough and cold-like symptoms for the past month. Today she felt a little more short of breath. Her breathing slightly improved with a DuoNeb treatment but she still felt a heaviness in her chest. All labs reassuring. Unclear of in etiology. We will preemptively treat with a Z-Blaise considering the length of her symptoms. Only lab abnormality was hypokalemia. Patient will be given some potassium and advised to follow up if symptoms worsen. Also will recheck potassium in 1 week. Discharge Plan Departure Patient Disposition: Home Clinical Impression: Shortness of breath, Hypokalemia Instructions: DI for Hypokalemia, DI for Shortness of Breath Activity Restrictions/Additional Instructions: Take meds as prescribed. Unclear of reason for this heaviness in her chest. If symptoms worsen come on back to ER. Follow up with PCP in the next week and recheck potassium as well. Prescriptions: New azithromycin 250 mg tablet 250 mg PO DAILY 4 Days Qty: 4 0RF Rx Instructions: start on day 2 of therapy potassium chloride 10 mEq capsule, extended release 10 meq PO DAILY Qty: 3 0RF No Action gabapentin 300 mg capsule 300 mg PO BID Rx Instructions: Discontinued baclofen 5 mg tablet 5 mg PO TID PRN (Reason: muscle spasm) Qty: 30 0RF Rx Instructions: May take up to 2 tablets three times a day as needed diazepam [Valium] 10 mg tablet 10 mg PO TID PRN (Reason: muscle spasm) Qty: 14 0RF Patient Comments: Discontinued Referrals: Miscellaneous,Doctor, MD [Primary Care Provider, Medical] Stand Alone Forms: Patient Portal/API
[2025-06-19] MEDS: ALBUTEROL/IPRATROPIUM 3 ML AMPUL INH (01:29)
[2025-06-19 01:36] LABS: Influenza A - CEPHEID Flu A NEGATIVE (NEGATIVE); Influenza B - CEPHEID Flu B NEGATIVE (NEGATIVE)
[2025-06-19 01:37] LABS: COVID-19 CEPHEID 4-PLEX PCR Negative (Negative)
[2025-06-19 03:29] LABS: Strep Grp A by PCR Rapid Negative (Negative)
[2025-06-19 03:41] LABS: Add Manual Diff / Slide Review NO; Hematocrit 34.7 % (36-46); Hemoglobin 11.9 g/dL (12.0-16.0); Lymphocytes Absolute Auto 1800 /uL (1100-4500); Mean Corpuscular HGB Conc 34.2 % (30-36); Mean Corpuscular Hemoglobin 29.4 PG (26-34); Mean Corpuscular Volume 86.0 fL (80-100); Platelet Count 214 X10^3/uL (150-400)
[2025-06-19 03:52] LABS: Alanine Aminotransferase 36 IU/L (<35); Albumin 4.4 g/dL (3.5-5.0); Albumin Globulin Ratio 1.4 (1.0-2.8); Alkaline Phosphatase 79 U/L (38-126); Blood Urea Nitrogen 10 mg/dL (7-17); Calcium 9.2 mg/dL (8.4-10.2); Carbon Dioxide 25 mmol/L (22-32); Chloride 107 mmol/L (98-107); Estimated Glomerular Filt Rate > 60 mL/min (>60); Globulin 3.1 g/dL (1.7-4.1); Glucose 111 mg/dL (70-99); HEMOLYSIS < 15 (0-50); Potassium 2.8 mmol/L (3.4-5.1); Sodium 143 mmol/L (137-145); Total Protein 7.5 g/dL (6.3-8.2)
[2025-06-19 04:09] LABS: Procalcitonin 0.043 ng/mL (<0.5)
[2025-06-19] MEDS: POTASSIUM CHLORIDE 20 MEQ/15 ML UDC 40 MEQ PO (04:18)
[2025-06-19] MEDS: AZITHROMYCIN 250 MG TABLET 500 MG PO (04:25)
[2025-06-19 04:35] LABS: Troponin I < 0.012 ng/mL (0.01-0.034)
== END 2025-06-19 04:41 | disposition home or self-care (01) ==
PROVIDERS: Emergency Provider Family Medicine
DX: E87.6 Hypokalemia (principal); R05.9 Cough, unspecified
CPT/HCPCS: 36415; 71046; 80053; 84145; 84484; 85025; 85379; 86318; 87637; 87651; 99283